=== PATIENT | male | born 1950 | race Caucasian/White ===

== ENCOUNTER 2017-03-17 11:06 | Emergency (ER) | payer MEDICARE ==
[~2017-03-17] VITALS: Ht 172.7 cm; Wt 47.4 kg
[2017-03-17] MEDS ORDERED: SODIUM CHLOR 0.9% 1000 ML INJ 1,000 ML IV SCH (11:13)
[2017-03-17] MEDS ORDERED: SODIUM CHLORIDE 0.9% FLUSH 10 ML FLUSH IV FLUSH PRN (11:15)
[2017-03-17 11:21] VITALS: BP 177/113; PULSE 101; RESP 14; TEMP 98; O2SAT 99
--- NOTE | 2017-03-17 11:23 | PD ---
HPI Chief Complaint: General Weakness Time Seen by Provider: 11:13 Travel History International Travel<30 days: No Contact w/Intl Traveler<30days: No Traveled to known affect area: No History of Present Illness HPI The patient is a 67-year-old male who presents to the emergency department for generalized weakness. Patient has generalized weakness over last several weeks was has been progressing actually of last several months. The patient estimates approximate 20 pound weight loss over the last 6 months. The patient does smoke approximately 12 cigarettes per day and has 2-3 alcoholic drinks per day. The patient does not have a primary physician secondary to insurance issues and has not been followed by primary physician. He denies any known history of chronic medical problems, has never had a colonoscopy. He does note increasing weakness of the last several weeks, occasionally has diarrhea and dark-colored stool. He denies any acute chest pain or shortness of breath, does have a intermittent and chronic cough. The patient denies any known history of colon cancer or lung cancer. He denies any known history of thyroid disorders or anemia. Symptoms are moderate, progressing last several months, and there are no current alleviating factors. The patient states he awakened in bed 4 nights ago and was drenched in sweat, states that he felt like he is unable to move the entire body secondary to generalized weakness, but denied any focal deficits at that time. [facility] Past Medical History Medical History: Denies Significant Hx Past Surgical History Surgical History: No Previous Surgery Social History Alcohol Use: Yes Tobacco Use: Yes Allergies-Medications (Allergen,Severity, Reaction): Coded Allergies: Bee Sting (Verified Allergy, Severe, Anaphylaxis, 03/17/17) Reported Meds & Prescriptions Reported Meds & Active Scripts Active No Active Prescriptions or Reported Medications Review of Systems Except as stated in HPI: all other systems reviewed are Neg General / Constitutional: Positive: Weight Loss, No: Fever HENT: Positive: Lightheadedness Cardiovascular: No: Chest Pain or Discomfort Respiratory: No: Shortness of Breath Gastrointestinal: Positive: Diarrhea, Changes in Bowel Habits, No: Nausea, Vomiting, Abdominal Pain Genitourinary: No: Decreased Urinary Output Musculoskeletal: Positive: Weakness Neurologic: Positive: Weakness Physical Exam Narrative GENERAL: Awake, alert, pleasant 67-year-old male who appears his stated age and is in no acute respiratory distress. The patient is somewhat cachectic. SKIN: Focused skin assessment warm/dry. HEAD: Atraumatic. Normocephalic. EYES: Pupils equal and round. Pallor noted to the lower conjunctiva bilaterally. ENT: No nasal bleeding or discharge. Dry mucous membranes. Poor dentition. NECK: Trachea midline. No JVD. CARDIOVASCULAR: Regular rate and rhythm. No murmur appreciated. Heart rate in the 80s. RESPIRATORY: No accessory muscle use. Clear to auscultation. Breath sounds equal bilaterally. GASTROINTESTINAL: Abdomen soft, non-tender, nondistended. No rebound tenderness. Rectal: No gross blood. Guaiac positive. MUSCULOSKELETAL: No obvious deformities. No clubbing. No cyanosis. No edema. NEUROLOGICAL: Awake and alert. No obvious cranial nerve deficits. Motor grossly within normal limits. Normal speech. PSYCHIATRIC: Appropriate mood and affect; insight and judgment normal. Data Data Last Documented VS Vital Signs Date Time Temp Pulse Resp B/P Pulse Ox O2 Delivery O2 Flow Rate FiO2 03/17/17 12:23 87 14 196/115 100 Room Air 03/17/17 11:24 98.0 Orders Complete Blood Count With Diff (03/17/17 11:13) Comprehensive Metabolic Panel (03/17/17 11:13) Lipase (03/17/17 11:13) Prothrombin Time / Inr (Pt) (03/17/17 11:13) Act Partial Throm Time (Ptt) (03/17/17 11:13) Urinalysis - C+S If Indicated (03/17/17 11:13) Ct Abd/Pel W Iv Contrast(Rout) (03/17/17 11:13) Iv Access Insert/Monitor (03/17/17 11:13) Ecg Monitoring (03/17/17 11:13) Oximetry (03/17/17 11:13) Sodium Chlor 0.9% 1000 Ml Inj (Ns 1000 M (03/17/17 11:13) Sodium Chloride 0.9% Flush (Ns Flush) (03/17/17 11:15) Electrocardiogram (03/17/17 11:13) Chest, Single Ap (03/17/17 11:13) Thyroid Stimulating Hormone (03/17/17 11:13) Free Thyroxine (T4) (03/17/17 11:13) Oral Contrast - Adult (03/17/17 11:17) Influenzae A/B Antigen (03/17/17 11:25) Diatrizoate Susie (Md Chayito Richards) (03/17/17 11:29) Iohexol 350 Inj (Omnipaque 350 Inj) (03/17/17 12:54) Labs Laboratory Tests Test 03/17/17 11:15 White Blood Count 7.6 TH/MM3 Red Blood Count 4.24 MIL/MM3 Hemoglobin 14.3 GM/DL Hematocrit 42.3 % Mean Corpuscular Volume 99.8 FL Mean Corpuscular Hemoglobin 33.7 PG Mean Corpuscular Hemoglobin 33.7 % Concent Red Cell Distribution Width 14.0 % Platelet Count 165 TH/MM3 Mean Platelet Volume 8.7 FL Neutrophils (%) (Auto) 81.5 % Lymphocytes (%) (Auto) 10.3 % Monocytes (%) (Auto) 6.9 % Eosinophils (%) (Auto) 0.7 % Basophils (%) (Auto) 0.6 % Neutrophils # (Auto) 6.2 TH/MM3 Lymphocytes # (Auto) 0.8 TH/MM3 Monocytes # (Auto) 0.5 TH/MM3 Eosinophils # (Auto) 0.1 TH/MM3 Basophils # (Auto) 0.0 TH/MM3 CBC Comment DIFF FINAL Differential Comment Prothrombin Time 10.1 SEC Prothromb Time International 0.9 RATIO Ratio Activated Partial 25.2 SEC Thromboplast Time Sodium Level 134 MEQ/L Potassium Level 3.7 MEQ/L Chloride Level 92 MEQ/L Carbon Dioxide Level 25.7 MEQ/L Anion Gap 16 MEQ/L Blood Urea Nitrogen 15 MG/DL Creatinine 0.91 MG/DL Estimat Glomerular Filtration 83 ML/MIN Rate Random Glucose 104 MG/DL Calcium Level 9.1 MG/DL Total Bilirubin 0.9 MG/DL Aspartate Amino Transf 92 U/L (AST/SGOT) Alanine Aminotransferase 79 U/L (ALT/SGPT) Alkaline Phosphatase 68 U/L Total Protein 6.1 GM/DL Albumin 3.2 GM/DL Lipase 234 U/L Free Thyroxine 1.13 NG/DL Thyroid Stimulating Hormone 2.680 uIU/ML 3rd Gen [facility] Medical Decision Making Medical Screen Exam Complete: Yes Emergency Medical Condition: Yes Medical Record Reviewed: Yes Interpretation(s) EKG reveals normal sinus rhythm with a rate 86. Nonspecific inferior lateral T- wave changes. Laboratory Tests Test 03/17/17 11:15 White Blood Count 7.6 TH/MM3 Red Blood Count 4.24 MIL/MM3 Hemoglobin 14.3 GM/DL Hematocrit 42.3 % Mean Corpuscular Volume 99.8 FL Mean Corpuscular Hemoglobin 33.7 PG Mean Corpuscular Hemoglobin 33.7 % Concent Red Cell Distribution Width 14.0 % Platelet Count 165 TH/MM3 Mean Platelet Volume 8.7 FL Neutrophils (%) (Auto) 81.5 % Lymphocytes (%) (Auto) 10.3 % Monocytes (%) (Auto) 6.9 % Eosinophils (%) (Auto) 0.7 % Basophils (%) (Auto) 0.6 % Neutrophils # (Auto) 6.2 TH/MM3 Lymphocytes # (Auto) 0.8 TH/MM3 Monocytes # (Auto) 0.5 TH/MM3 Eosinophils # (Auto) 0.1 TH/MM3 Basophils # (Auto) 0.0 TH/MM3 CBC Comment DIFF FINAL Differential Comment Prothrombin Time 10.1 SEC Prothromb Time International 0.9 RATIO Ratio Activated Partial 25.2 SEC Thromboplast Time Sodium Level 134 MEQ/L Potassium Level 3.7 MEQ/L Chloride Level 92 MEQ/L Carbon Dioxide Level 25.7 MEQ/L Anion Gap 16 MEQ/L Blood Urea Nitrogen 15 MG/DL Creatinine 0.91 MG/DL Estimat Glomerular Filtration 83 ML/MIN Rate Random Glucose 104 MG/DL Calcium Level 9.1 MG/DL Total Bilirubin 0.9 MG/DL Aspartate Amino Transf 92 U/L (AST/SGOT) Alanine Aminotransferase 79 U/L (ALT/SGPT) Alkaline Phosphatase 68 U/L Total Protein 6.1 GM/DL Albumin 3.2 GM/DL Lipase 234 U/L Free Thyroxine 1.13 NG/DL Thyroid Stimulating Hormone 2.680 uIU/ML 3rd Gen Last Impressions Chest X-Ray 03/17/17 1113 Signed Impressions: Service Date/Time: Friday, March 17, 2017 11:56 - CONCLUSION: No acute cardiopulmonary disease. Leslee Minor MD CT of the abdomen and pelvis reveals fatty liver with multiple low attenuating lesions indeterminate, not particularly simple cyst by CT criteria and metastatic disease should be excluded. There is some degree of spasm involving the sigmoid colon with thickening of the wall. Differential Diagnosis Differential diagnosis includes symptomatic anemia, hypothyroidism, hyperthyroidism, hyponatremia, lung cancer, pancreatic cancer, colon cancer, GI bleed. Narrative Course IV was established, labs are drawn and sent, and the patient was placed on cardiac telemetry monitoring and continuous pulse oximetry monitoring. EKG was ordered and interpreted. Chest x-rays obtained. CT of the abdomen and pelvis with IV and oral contrast was ordered to evaluate for pancreatic/colon mass. The patient was administered 1 L of IV fluids. The patient's laboratory evaluation is unremarkable, there is no significant anemia. There is no significant underlying renal disease. AST nail tear mildly elevated. Chest x- ray is unremarkable. CT the abdomen and pelvis reveals fatty liver with multiple low attenuating lesions indeterminate, not particularly simple cyst by CT criteria and metastatic disease should be excluded. The patient also had some degree of spasm involving the sigmoid colon with thickening of the wall. The patient will need follow-up with gastroenterology for outpatient follow-up and colonoscopy. The patient will be provided a mandatory referral to be evaluated by gastroenterology for colonoscopy. I discussed the patient's CT findings with him regarding the possible metastatic lesions versus simple cyst in the liver and the need to have a colonoscopy. I discussed these findings with the patient's daughter who is in the room as well. The patient does have Medicare 8, therefore, cannot have a mandatory referral. 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 He is advised to stop smoking and decrease his alcohol intake, eat 3 regular meals per day, and use ensure shakes in between as needed. [facility] Point of Care Internal Pos. & Neg. Controls: Passed Fecal Specimen Occult Blood: Positive Diagnosis Primary Impression: Generalized weakness Referrals: Christina Hamlin MD call for appointment Patient Instructions: General Instructions Additional Instructions: Stop smoking. Decrease alcohol intake. Please provide a patient a copy of his CT results and lab results at discharge. Follow-up with gastroenterology, you need an outpatient colonoscopy. Scripts No Active Prescriptions or Reported Meds Disposition: DISCHARGE HOME Condition: Stable Bertin Patiño MD Mar 17, 2017 11:22
[2017-03-17 11:24] VITALS: BP 177/113; PULSE 101; RESP 14; TEMP 98; O2SAT 99
[2017-03-17] MEDS ORDERED: DIATRIZOATE MEGLUM/DIATRIZOATE SOD 9 ML CUP ONE (11:29)
[2017-03-17 11:31] LABS: AUTOMATED NEUTROPHIL # 6.2 TH/MM3 (1.8-7.7); BASOPHIL % 0.6 % (0.0-2.0); EOSINOPHIL # 0.1 TH/MM3 (0-0.4); EOSINOPHIL % 0.7 % (0.0-4.0); HEMATOCRIT 42.3 % (39.0-51.0); LYMPH % 10.3 % (9.0-44.0); LYMPHOCYTE # 0.8 TH/MM3 (1.0-4.8); MEAN CELL VOLUME 99.8 FL (80.0-100.0); MEAN CORPUSCULAR HEMOGLOBIN 33.7 PG (27.0-34.0); MEAN CORPUSCULAR HGB CONC 33.7 % (32.0-36.0); MONO % 6.9 % (0.0-8.0); NEUT % 81.5 % (16.0-70.0); PLATELET COUNT 165 TH/MM3 (150-450); RED BLOOD COUNT 4.24 MIL/MM3 (4.50-5.90); WHITE BLOOD COUNT 7.6 TH/MM3 (4.0-11.0)
[2017-03-17 11:40] LABS: CHLORIDE 92 MEQ/L (98-107); HEMO FLAGS DIFF FINAL; POTASSIUM 3.7 MEQ/L (3.5-5.1); SODIUM (NA) 134 MEQ/L (136-145)
[2017-03-17 11:43] LABS: ANION GAP 16 MEQ/L (5-15); BICARBONATE 25.7 MEQ/L (21.0-32.0)
[2017-03-17 11:44] LABS: BLOOD UREA NITROGEN 15 MG/DL (7-18)
[2017-03-17 11:46] LABS: ALT (GPT) 79 U/L (12-78); AST (GOT) 92 U/L (15-37); GLOMERULAR FILTRATION RATE 83 ML/MIN (>89)
[2017-03-17 11:47] LABS: APTT (PATIENT) 25.2 SEC (24.3-30.1); INTERNATIONAL NORMALIZED RATIO 0.9 RATIO; PROTHROMBIN TIME - PATIENT 10.1 SEC (9.8-11.6); TOTAL BILIRUBIN ADULT 0.9 MG/DL (0.2-1.0)
[2017-03-17 11:49] LABS: ALKALINE PHOSPHATASE 68 U/L (45-117)
--- NOTE | 2017-03-17 12:13 | RADHPO ---
EXAM DATE/TIME: 03/17/2017 11:56 [facility] COMPARISON: No previous studies available for comparison. INDICATIONS : Short of breath. MEDICAL HISTORY : None. SURGICAL HISTORY : None. ENCOUNTER: Initial ACUITY: 1 day PAIN SCORE: 7/10 LOCATION: Bilateral chest FINDINGS: The lungs are clear without infiltrate, nodule, or mass. There is no appreciable pleural effusion fo r technique. Heart and mediastinum are unremarkable. CONCLUSION: No acute cardiopulmonary disease. Leslee Minor MD on March 17, 2017 at 12:11 Board Certified Radiologist. This report was verified electronically.
[2017-03-17 12:23] VITALS: BP 196/115; PULSE 87; RESP 14; O2SAT 100
[2017-03-17 12:38] LABS: FREE T4 1.13 NG/DL (0.76-1.46)
[2017-03-17] MEDS ORDERED: IOHEXOL 350 MG/ML 10 ML VIAL (for RAD DIAG) IV ONE (12:54)
--- NOTE | 2017-03-17 13:19 | RADHPO ---
EXAM DATE/TIME: 03/17/2017 12:44 [facility] COMPARISON: No previous studies available for comparison. INDICATIONS : Weight loss. Evaluate for cancer. IV CONTRAST: 85 cc Omnipaque 350 (iohexol) IV ORAL CONTRAST: Partial prescribed oral contrast ingested. RADIATION DOSE: 4.83 CTDIvol (mGy) MEDICAL HISTORY : None SURGICAL HISTORY : None. ENCOUNTER: Initial ACUITY: 4 - 6 months PAIN SCALE: 0/10 LOCATION: abdomen/pelvis TECHNIQUE: Volumetric scanning of the abdomen and pelvis was performed. Using automated exposure control and adjustment of the mA and/or kV according to patient size, radiation dose was kept as low as reasonably achievable to obtain optimal diagnostic quality images. FINDINGS: CT Abdomen: The liver is fatty with 4 separate subcentimeter low attenuating lesions may represent me tastatic disease. The spleen, pancreas, kidneys, adrenals are unremarkable. There is no evidence for any appreciable pathological adenopathy, free fluid, or bowel obstruction. Chronic vascular calcific ations are present involving the aorta, iliac arteries without any significant stenosis or aneurysmal dilatations for technique. There are old healed rib fractures bilaterally. Slight degree of somewhat linear irregular opacity is seen in the left lung base mostly consistent with scarring. CT pelvis: There is no evidence for mass, abscess formation, or any significant adenopathy within the pelvis. The prostate gland is inhomogeneous and measures 2.9 x 4.3 cm in AP and transverse diameters and nonspecific. There are scattered diverticuli mainly in the sigmoid colon without definite signs of diverticulitis. There is some degree of spasm involving the sigmoid colon with thickening of the w all. CONCLUSION: Fatty liver with multiple low attenuating lesions indeterminant not particularly simp le cysts by CT criteria and metastatic disease should be excluded. Leslee Minor MD on March 17, 2017 at 13:13 Board Certified Radiologist. This report was verified electronically.
[2017-03-17 13:35] VITALS: BP 168/98; PULSE 94; RESP 14; O2SAT 100
[2017-03-17 13:42] LABS: BLOOD, URINE NEG (NEG); GLUCOSE,URINE NEG (NEG); KETONE, URINE 15 mg/dL (NEG); NITRITE,URINE NEG (NEG); PH, URINE 5.5 (5.0-8.5)
[2017-03-17 13:46] LABS: METHOD OF COLLECTION CLEAN CATCH; URINE COLOR STRAW (YELLW/STRAW)
[2017-03-17 13:47] LABS: COMMENT (UR) CULT NOT INDICATED; CULTURE IF INDICATED CULT NOT INDICATED; RBC, URINE 0-3 /hpf (0-3); SQUAMOUS EPITHELIAL CELL URINE 0-5 /hpf (0-5)
--- NOTE | 2017-03-18 11:53 | EKG ---
Date Performed: 03/17/2017 Time Performed: 11:09:10 PTAGE: 67 years EKG: Sinus rhythm Inferior/lateral ST-T changes are nonspecific Borderline ECG NO PREVIOUS TRACING DOCTOR: Benny Stroud Interpretating Date/Time 03/18/2017 11:52:20
== END 2017-03-17 13:48 | disposition home or self-care (01) ==
LOC: PHED 11:06
DX: R53.1 Weakness (principal); R94.31 Abnormal electrocardiogram [ECG] [EKG]; F17.210 Nicotine dependence, cigarettes, uncomplicated; R63.4 Abnormal weight loss; R19.7 Diarrhea, unspecified
CPT/HCPCS: 71010; 74177; 80053; 81001; 83690; 84439; 84443; 85025; 85610; 85730; 87804; 93005; 96360; 99285; J7030; Q9963; Q9967

== ENCOUNTER 2018-03-24 16:49 | Observation (INO) | payer SELFPAY ==
[~2018-03-24] VITALS: Ht 172.7 cm; Wt 46.0 kg
[~2018-03-24 16:49] MED LIST: IODIXANOL 320 MG/ML 10 ML VIAL (for Rad CT) IVCONTRAST ONE
[2018-03-24 17:10] VITALS: BP 96/57; PULSE 109; RESP 16; TEMP 97.4; O2SAT 99
[2018-03-24] MEDS ORDERED: SODIUM CHLOR 0.9% 1000 ML INJ 1,000 ML IV ONE (19:45)
[2018-03-24 20:09] LABS: AUTOMATED NEUTROPHIL # 4.9 TH/MM3 (1.8-7.7); BASOPHIL % 0.3 % (0.0-2.0); HEMATOCRIT 38.1 % (39.0-51.0); HEMOGLOBIN 12.7 GM/DL (13.0-17.0); LYMPH % 8.3 % (9.0-44.0); LYMPHOCYTE # 0.5 TH/MM3 (1.0-4.8); MEAN CELL VOLUME 100.8 FL (80.0-100.0); MEAN CORPUSCULAR HEMOGLOBIN 33.6 PG (27.0-34.0); MEAN CORPUSCULAR HGB CONC 33.4 % (32.0-36.0); MEAN PLATELET VOLUME 9.2 FL (7.0-11.0); MONO % 7.2 % (0.0-8.0); MONOCYTE # 0.4 TH/MM3 (0-0.9); NEUT % 84.2 % (16.0-70.0); PLATELET COUNT 208 TH/MM3 (150-450); RED BLOOD COUNT 3.78 MIL/MM3 (4.50-5.90); RED CELL DISTRIBUTION WIDTH 14.7 % (11.6-17.2); WHITE BLOOD COUNT 5.8 TH/MM3 (4.0-11.0)
[2018-03-24 20:16] LABS: CHLORIDE 100 MEQ/L (98-107); SODIUM (NA) 134 MEQ/L (136-145)
[2018-03-24 20:19] LABS: CALCIUM 8.1 MG/DL (8.5-10.1)
[2018-03-24 20:20] LABS: ALBUMIN 2.5 GM/DL (3.4-5.0); BICARBONATE 21.2 MEQ/L (21.0-32.0)
--- NOTE | 2018-03-24 20:52 | RADRPT ---
EXAM DATE/TIME: 03/24/2018 20:17 [facility] COMPARISON: CHEST SINGLE AP, March 17, 2017, 11:56. INDICATIONS : Cough. MEDICAL HISTORY : None. SURGICAL HISTORY : None. ENCOUNTER: Initial ACUITY: 3 days PAIN SCORE: 0/10 LOCATION: Bilateral chest FINDINGS: Lungs are hyperexpanded. Ill-defined/mild infiltrate in the right middle lobe. Lungs otherwise appear clear. No pleural effusion. No pneumothorax. Heart size stable, within normal limits. CONCLUSION: Early or mild pneumonia of the right middle lobe possible in the proper clinical setting. Lungs other andrews clear. Emphysema. Ben Goldsmith MD on March 24, 2018 at 20:48 Board Certified Radiologist. This report was verified electronically.
[2018-03-24 21:01] VITALS: BP 158/62; PULSE 84; RESP 18
[2018-03-24 21:14] LABS: ALKALINE PHOSPHATASE 86 U/L (45-117); ALT (GPT) 24 U/L (12-78); AST (GOT) 44 U/L (15-37); BLOOD UREA NITROGEN 12 MG/DL (7-18); GLOMERULAR FILTRATION RATE 60 ML/MIN (>89); GLUCOSE,RANDOM 431 MG/DL (74-106); TOTAL BILIRUBIN ADULT 0.3 MG/DL (0.2-1.0); TOTAL PROTEIN 6.1 GM/DL (6.4-8.2); TROPONIN I 0.02 NG/ML (0.02-0.05)
--- NOTE | 2018-03-24 21:44 | RADRPT ---
EXAM DATE/TIME: 03/24/2018 21:22 [facility] COMPARISON: No previous studies available for comparison. INDICATIONS : Altered mental status. RADIATION DOSE: 53.37 CTDIvol (mGy) MEDICAL HISTORY : None SURGICAL HISTORY : None. ENCOUNTER: Initial ACUITY: 1 day PAIN SCALE: 0/10 LOCATION: cranial TECHNIQUE: Multiple contiguous axial images were obtained of the head. Using automated exposure control and adj ustment of the mA and/or kV according to patient size, radiation dose was kept as low as reasonably a chievable to obtain optimal diagnostic quality images. DICOM format image data is available electro nically for review and comparison. FINDINGS: CEREBRUM: The ventricles are normal for age. No evidence of midline shift, mass lesion, hemorrhage or acute in farction. No extra-axial fluid collections are seen. Atrophy noted. POSTERIOR FOSSA: The cerebellum and brainstem are intact. The 4th ventricle is midline. The cerebellopontine angle i s unremarkable. EXTRACRANIAL: There is mucoperiosteal thickening artly seen of the left maxillary air cell. SKULL: The calvaria is intact. No evidence of skull fracture. CONCLUSION: 1. No acute intracranial abnormality demonstrated. 2. Atrophy. 3. Left maxillary sinusitis. Ben Goldsmith MD on March 24, 2018 at 21:40 Board Certified Radiologist. This report was verified electronically.
--- NOTE | 2018-03-24 21:51 | EKG ---
Date Performed: 03/24/2018 Time Performed: 20:43:30 PTAGE: 68 years EKG: Sinus rhythm WITH OCCASIONAL SUPRAVENTRICULAR PREMATURE COMPLEXES MARKED T WAVE INVERSION CONSIDER ANTEROLATERAL AND INFERIOR ISCHEMIA, ACUTE ABDOMEN, OR ACUTE CVA ABNORMAL ECG PREVIOUS TRACING : 03/17/2017 11.09 Compared to previous tracing, T wave changes are now presen t. DOCTOR: Roel Oswald Interpretating Date/Time 03/24/2018 21:51:06
[2018-03-24] MEDS ORDERED: AZITHROMYCIN INJ 500 MG in SODIUM CHLOR 0.9% 250 ML INJ 250 ML IV ONE (22:15)
[2018-03-24] MEDS ORDERED: cefTRIAXone INJ 1,000 MG in SODIUM CHLORIDE 0.9% INJ 100 ML IV ONE (22:15)
--- NOTE | 2018-03-24 22:18 | PD ---
HPI Chief Complaint: Abnormal Results Time Seen by Provider: 19:38 Travel History International Travel<30 days: No Contact w/Intl Traveler<30days: No Traveled to known affect area: No History of Present Illness HPI Patient is a 68-year-old male who comes in with complaints of generalized weakness and shortness of breath. He says that he experienced sleep paralysis this morning and his son called EMS. When EMS arrived his glucose was 24. He was given D10 and his sugar improved to the 130s. He says he has been eating all day, including multiple fruit juices. He has no history of diabetes and he does not know why his sugar is going from low to high. He says he did not eat dinner last night. He says he often only eats once a day. He says this is just because he is not hungry. He was here a year ago for similar symptoms and was told to follow-up with gastroenterology regarding abnormal findings on CT of his abdomen. He says he is followed up, but has not had a colonoscopy yet. He denies any abdominal pain. Denies nausea or vomiting. He denies any chest pain. He has had worsening dyspnea on exertion. Severity is mild to moderate. PFSH Past Medical History Diminished Hearing: No Pneumonia: Yes Tetanus Vaccination: Unknown Influenza Vaccination: No ?: Not Social History Alcohol Use: Yes (~4 DRINKS DAILY) Tobacco Use: Yes (~3/4 PPD) Substance Use: No Allergies-Medications (Allergen,Severity, Reaction): Coded Allergies: bee venom protein (honey bee) (Verified Allergy, Severe, Anaphylaxis, 03/24) Reported Meds & Prescriptions Reported Meds & Active Scripts Active No Active Prescriptions or Reported Medications Review of Systems Except as stated in HPI: all other systems reviewed are Neg General / Constitutional: No: Fever, Chills HENT: No: Headaches, Lightheadedness Cardiovascular: No: Chest Pain or Discomfort Respiratory: Positive: Cough, Shortness of Breath Gastrointestinal: No: Nausea, Vomiting, Abdominal Pain Musculoskeletal: No: Myalgias, Edema Skin: No Rash, No Change in Pigmentation Neurologic: Positive: Weakness Physical Exam Narrative GENERAL: Awake and alert, in no acute distress. SKIN: Focused skin assessment warm/dry. No wounds or signs of infection. HEAD: Atraumatic. Normocephalic. EYES: Pupils equal and round. No scleral icterus. ENT: Mucous membranes pink and moist. NECK: Trachea midline. No JVD. CARDIOVASCULAR: Regular rate and rhythm. No murmur appreciated. RESPIRATORY: No accessory muscle use. Clear to auscultation. Breath sounds equal bilaterally. GASTROINTESTINAL: Abdomen soft, non-tender, nondistended. MUSCULOSKELETAL: No obvious deformities. No clubbing. No cyanosis. No edema. NEUROLOGICAL: Awake and alert. No obvious cranial nerve deficits. Motor grossly within normal limits. Normal speech. PSYCHIATRIC: Appropriate mood and affect; insight and judgment normal. Data Data Last Documented VS Vital Signs Date Time Temp Pulse Resp B/P (MAP) Pulse Ox O2 Delivery O2 Flow Rate FiO2 03/24/18 21:01 84 18 158/62 (94) 03/24/18 17:10 97.4 99 Orders Orders Iv Access Insert/Monitor (03/24/18 19:45) Complete Blood Count With Diff (03/24/18 19:45) Comprehensive Metabolic Panel (03/24/18 19:45) Chest, Pa & Lat (03/24/18 ) Ct Brain W/O Iv Contrast(Rout) (03/24/18 ) Electrocardiogram (03/24/18 ) Troponin I (03/24/18 19:45) Sodium Chlor 0.9% 1000 Ml Inj (Ns 1000 M (03/24/18 19:45) Ceftriaxone Inj (Rocephin Inj) (03/24/18 22:15) Azithromycin Inj (Zithromax Inj) (03/24/18 22:15) Labs Laboratory Tests Test 03/24/18 19:57 White Blood Count 5.8 TH/MM3 Red Blood Count 3.78 MIL/MM3 Hemoglobin 12.7 GM/DL Hematocrit 38.1 % Mean Corpuscular Volume 100.8 FL Mean Corpuscular Hemoglobin 33.6 PG Mean Corpuscular Hemoglobin Concent 33.4 % Red Cell Distribution Width 14.7 % Platelet Count 208 TH/MM3 Mean Platelet Volume 9.2 FL Neutrophils (%) (Auto) 84.2 % Lymphocytes (%) (Auto) 8.3 % Monocytes (%) (Auto) 7.2 % Eosinophils (%) (Auto) 0.0 % Basophils (%) (Auto) 0.3 % Neutrophils # (Auto) 4.9 TH/MM3 Lymphocytes # (Auto) 0.5 TH/MM3 Monocytes # (Auto) 0.4 TH/MM3 Eosinophils # (Auto) 0.0 TH/MM3 Basophils # (Auto) 0.0 TH/MM3 CBC Comment DIFF FINAL Differential Comment Blood Urea Nitrogen 12 MG/DL Creatinine 1.20 MG/DL Random Glucose 431 MG/DL Total Protein 6.1 GM/DL Albumin 2.5 GM/DL Calcium Level 8.1 MG/DL Alkaline Phosphatase 86 U/L Aspartate Amino Transf (AST/SGOT) 44 U/L Alanine Aminotransferase (ALT/SGPT) 24 U/L Total Bilirubin 0.3 MG/DL Sodium Level 134 MEQ/L Potassium Level 3.7 MEQ/L Chloride Level 100 MEQ/L Carbon Dioxide Level 21.2 MEQ/L Anion Gap 13 MEQ/L Estimat Glomerular Filtration Rate 60 ML/MIN Troponin I 0.02 NG/ML MDM Medical Decision Making Medical Screen Exam Complete: Yes Emergency Medical Condition: Yes Medical Record Reviewed: Yes Interpretation(s) ECG shows deep T-wave inversions in leads V3 through V6, those are new since his previous EKG in July 2017. Differential Diagnosis ACS versus pneumonia versus electrolyte abnormality versus dehydration versus sepsis Narrative Course Patient is a 68-year-old male who comes in complaining of generalized weakness as well as shortness of breath. IV established, labs sent. Labs show normal white blood cell count however, there is a left shift. His glucose is elevated to 431. Chest x-ray is concerning for pneumonia. Last [address] 03/24/18 0000 Signed Impressions: Service Date/Time: Saturday, March 24, 2018 21:22 - CONCLUSION: 1. No acute intracranial abnormality demonstrated. 2. Atrophy. 3. Left maxillary sinusitis. Ben Goldsmith MD Chest X-Ray 03/24/18 0000 Signed Impressions: Service Date/Time: Saturday, March 24, 2018 20:17 - CONCLUSION: Early or mild pneumonia of the right middle lobe possible in the proper clinical setting. Lungs otherwise clear. Emphysema. Ben Goldsmith MD Patient is given Rocephin and azithromycin. Based on new EKG findings as well as his history of dyspnea on exertion and the findings of pneumonia, believe patient would benefit from a hospital stay and continued workup for possible cardiac ischemia. He is admitted for further management. Diagnosis Primary Impression: Pneumonia Qualified Codes: J18.1 - Lobar pneumonia, unspecified organism Additional Impressions: Generalized weakness ECG abnormality Admitting Information Admitting Physician Requests: Admit Scripts No Active Prescriptions or Reported Meds Larissa Block MD Mar 24, 2018 22:18
[2018-03-24] MEDS ORDERED: SODIUM CHLOR 0.9% 1000 ML INJ 1,000 ML IV SCH (22:36)
[2018-03-24] MEDS ORDERED: IOHEXOL 350 MG/ML 50 ML BTL (for Cath Lab) OTHER ONE (22:39)
[2018-03-24] MEDS ORDERED: IOHEXOL 350 MG/ML 100 ML BTL (for Cath Lab) OTHER ONE (22:39)
[2018-03-24] MEDS ORDERED: NALOXONE HCL 0.4 MG/ML AMP IV PUSH PRN (22:45)
[2018-03-24] MEDS ORDERED: LACTULOSE SYRUP 20 GM/30 ML CUP PO PRN (22:45)
[2018-03-24] MEDS ORDERED: ONDANSETRON HCL 4 MG/2 ML VIAL IVP PRN (22:45)
[2018-03-24] MEDS ORDERED: DEXTROSE 50% IN WATER 50 ML VIAL(D50) IV PUSH PRN (22:45)
[2018-03-24] MEDS ORDERED: SENNOSIDES 8.6 MG TAB PO PRN (22:45)
[2018-03-24] MEDS ORDERED: RESP: ALBUTEROL 2.5 MG/IPRATROPIUM 0.5 MG NEB (PRN) NEB (22:45)
[2018-03-24] MEDS ORDERED: GLUCAGON 1 MG/ML VIAL OTHER PRN (22:45)
[2018-03-24] MEDS ORDERED: BISACODYL 10 MG SUPP RECTAL PRN (22:45)
[2018-03-24] MEDS ORDERED: MAGNESIUM HYDROXIDE SUSP 30 ML CUP PO PRN (22:45)
[2018-03-24] MEDS ORDERED: SODIUM CHLORIDE 0.9% FLUSH 10 ML FLUSH IV FLUSH PRN (22:45)
[2018-03-24] MEDS ORDERED: ACETAMINOPHEN 325 MG TAB PO PRN (22:45)
[2018-03-24] MEDS: guaiFENesin E.R. 600 MG TAB PO SCH (22:58)
[2018-03-24 23:15] VITALS: O2SAT 99
[2018-03-24] MEDS: RESP: ALBUTEROL 2.5 MG/IPRATROPIUM 0.5 MG NEB (SCH) NEB (23:16)
[2018-03-24 23:30] VITALS: PULSE 105
[2018-03-24 23:45] VITALS: BP 145/70; PULSE 99; RESP 18; TEMP 97.9; O2SAT 98
[2018-03-25] VITALS (7 sets, daily range): BP systolic 135–172; BP diastolic 64–118; PULSE 62–106; RESP 18–20; TEMP 97.4–98.9; O2SAT 96–100
[2018-03-25 02:20] LABS: TROPONIN I 0.02 NG/ML (0.02-0.05)
[2018-03-25] MEDS: RESP: ALBUTEROL 2.5 MG/IPRATROPIUM 0.5 MG NEB (SCH) NEB (03:21)
--- NOTE | 2018-03-25 05:22 | EKG ---
Date Performed: 03/25/2018 Time Performed: 01:45:11 PTAGE: 68 years EKG: Sinus rhythm MARKED T-WAVE ABNORMALITY, CONSIDER ANTEROLATERAL AND INFERIOR ISCHEMIA ABNORMAL ECG PREVIOUS TRACING : 03/24/2018 20.43 No significant change from previous tracing noted. DOCTOR: Roel Oswald Interpretating Date/Time 03/25/2018 05:21:08
[2018-03-25 06:52] LABS: BASOPHIL % 0.1 % (0.0-2.0); EOSINOPHIL % 0.1 % (0.0-4.0); HEMATOCRIT 33.1 % (39.0-51.0); HEMOGLOBIN 11.3 GM/DL (13.0-17.0); LYMPH % 11.9 % (9.0-44.0); LYMPHOCYTE # 0.7 TH/MM3 (1.0-4.8); MEAN CELL VOLUME 100.4 FL (80.0-100.0); MEAN CORPUSCULAR HEMOGLOBIN 34.5 PG (27.0-34.0); MEAN CORPUSCULAR HGB CONC 34.3 % (32.0-36.0); MEAN PLATELET VOLUME 9.3 FL (7.0-11.0); MONO % 8.7 % (0.0-8.0); MONOCYTE # 0.5 TH/MM3 (0-0.9); NEUT % 79.2 % (16.0-70.0); PLATELET COUNT 186 TH/MM3 (150-450); RED BLOOD COUNT 3.29 MIL/MM3 (4.50-5.90); WHITE BLOOD COUNT 6.2 TH/MM3 (4.0-11.0)
[2018-03-25 07:04] LABS: BICARBONATE 21.8 MEQ/L (21.0-32.0); CALCIUM 7.8 MG/DL (8.5-10.1); CREATININE 0.84 MG/DL (0.60-1.30)
[2018-03-25] MEDS: INSULIN ASPART SUPPLEMENTAL SCALE SQ SCH ×4 (07:44→20:37)
[2018-03-25] MEDS: SODIUM CHLORIDE 0.9% FLUSH 10 ML FLUSH IV FLUSH SCH ×2 (09:03→20:38)
[2018-03-25] MEDS: guaiFENesin E.R. 600 MG TAB PO SCH ×2 (09:06→20:37)
[2018-03-25] MEDS ORDERED: POTASSIUM CHLORIDE 10 MEQ CONTROLLED RELEASE TAB PO ONE (09:15)
--- NOTE | 2018-03-25 09:35 | HHI.HP ---
[facility] Primary [facility]ician No Primary Care Physician Admission Diagnosis pneumonia, acs Diagnoses: (1) ECG abnormality Diagnosis: Principal (2) Pneumonia Diagnosis: Principal (3) Hyperglycemia Diagnosis: Principal Chief Complaint: "Sleep paralysis" Travel History International Travel<30 Days: No Contact w/Intl Traveler <30 Da: No Traveled to Known Affected Are: No History of Present Illness This is a 68-year-old male who indicates that he has not had any chronic medical illnesses, he does not go to a primary medical doctor for evaluation who presented the hospital via ambulance because of hypoglycemia. Patient indicates that his normal state of health until yesterday morning when he woke up and he explained that he was in "sleep paralysis". He was awake but he could not move. His son did call [facility] who came in and evaluated him. It was indicated that his blood sugar was 24 and they gave him D10 with significant improvement. After the administration of D10 the patient states that all the symptoms resolved and he felt much better. Patient had workup done in the emergency department and found to have significant hyperglycemia, chest x-ray showing possible mild right middle lobe consolidation, and abnormal EKG with T-wave inversions noted in all leads. When compared to previous EKG this appears to be a change. Because of the abnormal EKG findings is recommended by the ER physician that the patient be observed in the hospital for further evaluation and management. Patient denies any chest pain, nausea, vomiting, diaphoresis, shortness of breath, dyspnea. Patient denies any weight gain, weight loss, polydipsia, polyphagia. Review of Systems Neurologic: COMPLAINS OF: Speech Problems Except as stated in HPI: all other systems reviewed are Neg Past Family Social History Past Medical History No chronic medical illnesses Past Surgical History Left groin cyst removal Reported Medications Reported Meds & Active Scripts Active No Active Prescriptions or Reported Medications Allergies: Coded Allergies: bee venom protein (honey bee) (Verified Allergy, Severe, Anaphylaxis, 03/24) Family History Reviewed and significant for mother living 204 years old and in old age , father in his late 80s from old age. Brother from cancer. Social History Patient does continue to smoke three-quarter pack of cigarettes a day since he was 2 years old. He drinks 4 alcoholic beverages daily. The patient denies any illicit drug use Physical Exam Vital Signs Vital Signs Date Time Temp Pulse Resp B/P (MAP) Pulse Ox O2 Delivery O2 Flow Rate FiO2 03/25/18 08:00 98.4 97 18 141/64 (89) 97 03/25/18 04:00 98.5 102 18 140/65 (90) 96 03/24/18 23:45 03/24/18 23:45 97.9 99 18 145/70 (95) 98 03/24/18 23:30 105 03/24/18 23:15 99 21 03/24/18 21:01 84 18 158/62 (94) 03/24/18 19:47 18 03/24/18 17:10 97.4 109 16 96/57 (70) 99 Physical Exam GENERAL: Well-developed, well-nourished, in no acute distress. alert and orientated HEENT: Head is normocephalic without any lesions or masses noted. Facial features are symmetric. Eyes: Pupils equal round reactive to light. Extraocular muscles are intact. Conjunctivae were clear. Oropharyngeal: Pharynx without any erythema edema. Tongue is midline without deviation. Buccal mucosa is moist without any masses or lesions NECK: Supple without any masses. Trachea midline no deviation. No JVD, no bruits are appreciated CARDIAC: Regular rhythm, regular rate. S1/S2 are heard. No murmurs gallops or rubs. LUNGS: Clear to auscultation bilaterally. No wheeze, rhonchi or rales. No use of accessory muscles on inspiration or expiration. ABDOMEN: Soft, nontender. Nondistended. Bowel sounds heard in all 4 quadrants. No organomegaly or masses. Negative rebound, negative guarding EXTREMITIES: No edema, pulses are equal bilaterally. No cyanosis or clubbing NEUROLOGY: Mood and affect appear appropriate. Cranial nerves II through XII grossly intact. Muscle strength 5/5 in upper and lower extremities bilaterally. Deep tendon reflexes are 2+ in upper and lower extremities bilaterally. Laboratory Laboratory Tests Test 03/24/18 19:57 03/25/18 01:50 03/25/18 05:35 03/25/18 08:38 White Blood Count 5.8 6.2 Red Blood Count 3.78 3.29 Hemoglobin 12.7 11.3 Hematocrit 38.1 33.1 Mean Corpuscular Volume 100.8 100.4 Mean Corpuscular Hemoglobin 33.6 34.5 Mean Corpuscular Hemoglobin Concent 33.4 34.3 Red Cell Distribution Width 14.7 15.0 Platelet Count 208 186 Mean Platelet Volume 9.2 9.3 Neutrophils (%) (Auto) 84.2 79.2 Lymphocytes (%) (Auto) 8.3 11.9 Monocytes (%) (Auto) 7.2 8.7 Eosinophils (%) (Auto) 0.0 0.1 Basophils (%) (Auto) 0.3 0.1 Neutrophils # (Auto) 4.9 5.0 Lymphocytes # (Auto) 0.5 0.7 Monocytes # (Auto) 0.4 0.5 Eosinophils # (Auto) 0.0 0.0 Basophils # (Auto) 0.0 0.0 CBC Comment DIFF FINAL DIFF FINAL Differential Comment Blood Urea Nitrogen 12 12 Creatinine 1.20 0.84 Random Glucose 431 136 Total Protein 6.1 Albumin 2.5 Calcium Level 8.1 7.8 Alkaline Phosphatase 86 Aspartate Amino Transf (AST/SGOT) 44 Alanine Aminotransferase (ALT/SGPT) 24 Total Bilirubin 0.3 Sodium Level 134 142 Potassium Level 3.7 3.1 Chloride Level 100 110 Carbon Dioxide Level 21.2 21.8 Anion Gap 13 10 Estimat Glomerular Filtration Rate 60 90 Troponin I 0.02 0.02 Total Creatine Kinase 51 Result Diagram: 03/25/18 0535 03/25/18 0535 Imaging Last Impressions Head CT 03/24/18 0000 Signed Impressions: Service Date/Time: Saturday, March 24, 2018 21:22 - CONCLUSION: 1. No acute intracranial abnormality demonstrated. 2. Atrophy. 3. Left maxillary sinusitis. Ben Goldsmith MD Chest X-Ray 03/24/18 0000 Signed Impressions: Service Date/Time: Saturday, March 24, 2018 20:17 - CONCLUSION: Early or mild pneumonia of the right middle lobe possible in the proper clinical setting. Lungs otherwise clear. Emphysema. MD Shun Arango VTE Risk Assessment Caprini VTE Risk Assessment: Mod/High Risk (score >= 2) Caprini Risk Assessment Model Point Value = 1 Point Value = 2 Point Value = 3 Point Value = 5 Age 41-60 Minor surgery BMI > 25 kg/m2 Swollen legs Varicose veins or History of unexplained or recurrent spontaneous Oral contraceptives or hormone replacement Sepsis (< 1 month) Serious lung disease, including pneumonia (< 1 month) Abnormal pulmonary function Acute myocardial infarction Congestive heart failure (< 1 month) History of inflammatory bowel disease Medical patient at bed rest Age 61-74 Arthroscopic surgery Major open surgery (> 45 min) Laparoscopic surgery (> 45 min) Malignancy Confined to bed (> 72 hours) Immobilizing plaster cast Central venous access Age >= 75 History of VTE Family history of VTE Factor V Leiden Prothrombin [id number] Lupus anticoagulant Anticardiolipin antibodies Elevated serum homocysteine Heparin-induced thrombocytopenia Other congenital or acquired thrombophilia Stroke (< 1 month) Elective arthroplasty Hip, pelvis, or leg fracture Acute spinal cord injury (< 1 month) Prophylaxis Regimen Total Risk Factor Score Risk Level Prophylaxis Regimen 0-1 Low Early ambulation 2 Moderate Order ONE of the following: *Sequential Compression Device (SCD) *Heparin 5000 units SQ BID 3-4 Higher Order ONE of the following medications: *Heparin 5000 units SQ TID *Enoxaparin/Lovenox 40 mg SQ daily (WT < 150 kg, CrCl > 30 mL/min) *Enoxaparin/Lovenox 30 mg SQ daily (WT < 150 kg, CrCl > 10-29 mL/min) *Enoxaparin/Lovenox 30 mg SQ BID (WT < 150 kg, CrCl > 30 mL/min) AND/OR *Sequential Compression Device (SCD) 5 or more Highest Order ONE of the following medications: *Heparin 5000 units SQ TID (Preferred with Epidurals) *Enoxaparin/Lovenox 40 mg SQ daily (WT < 150 kg, CrCl > 30 mL/min) *Enoxaparin/Lovenox 30 mg SQ daily (WT < 150 kg, CrCl > 10-29 mL/min) *Enoxaparin/Lovenox 30 mg SQ BID (WT < 150 kg, CrCl > 30 mL/min) AND *Sequential Compression Device (SCD) Assessment and Plan Assessment and Plan Hypoglycemia with profound weakness -Possible underlying diabetes, patient presented to the emergency department he had blood sugar of 431 -We will obtain hemoglobin A1c -Accu-Cheks with sliding scale insulin Abnormal EKG -Patient is asymptomatic -EKG showing abnormal T waves in almost every lead showing possible signs of anterior lateral ischemia -Will need to obtain EKG after replacing all electrodes to see if related to placement -Serial cardiac enzymes are unremarkable and do not show any signs of cardiac injury -Consult cardiology for further recommendations -Obtain echocardiogram -Start aspirin Early or mild pneumonia of the right middle lobe possible in the proper clinical setting per chest x-ray -Patient is asymptomatic, no leukocytosis, cough, congestion, short of breath -Patient started on Rocephin/Zithromax for community-acquired pneumonia -Continue guaifenesin -Continue duo nebs as needed Hypokalemia -Replace and continue monitor Chronic tobacco use -Patient counseled on cessation Chronic alcohol use -Monitor for withdrawal symptoms DVT prevention -Sequential compression devices Problem Qualifiers (1) Pneumonia: Qualified Codes: J18.1 - Lobar pneumonia, unspecified organism Jeronimo Gutierrez Mar 25, 2018 09:35
--- NOTE | 2018-03-25 10:05 | EKG ---
Date Performed: 03/25/2018 Time Performed: 09:42:02 PTAGE: 68 years EKG: Sinus rhythm WITH SHORT IA INTERVAL T-WAVE ABNORMALITY, CONSIDER INFERIOR AND ANTEROLATERAL ISCHEMIA ABNORMAL ECG PREVIOUS TRACING : 03/25/2018 08.42 No significant change from previous tracing noted. DOCTOR: Roel Oswald Interpretating Date/Time 03/25/2018 10:04:25
--- NOTE | 2018-03-25 10:06 | EKG ---
Date Performed: 03/25/2018 Time Performed: 08:42:06 PTAGE: 68 years EKG: SINUS TACHYCARDIA WITH SHORT NH INTERVAL T-WAVE ABNORMALITY, CONSIDER ANTEROLATERAL AND INF ERIOR ISCHEMIA ABNORMAL ECG PREVIOUS TRACING : 03/25/2018 01.45 No significant change from previous tracing noted. DOCTOR: Roel Oswald Interpretating Date/Time 03/25/2018 10:05:07
[2018-03-25 10:11] LABS: TROPONIN I 0.02 NG/ML (0.02-0.05)
[2018-03-25] MEDS: ASPIRIN EC 81 MG TABEC PO SCH (12:56)
--- NOTE | 2018-03-25 15:19 | MB ---
cc: Jorje Rachel MD, Hammad M MD DATE: 03/25/2018 I have reviewed hospital records and spoken with the patient. HISTORY OF PRESENT ILLNESS: The patient is a 68-year-old white man I am seeing for an abnormal EKG. He does not follow with any physicians and denies hypertension, diabetes, or hyperlipidemia. The patient on the day of admission had woken up in the morning. He could not move yet he was awake. Apparently, he laid there for several hours and finally his son returned home and called the emergency paramedics. Apparently, his glucose was 24 and he was given D10 with improvement of his sugar to the 130s and rapid improvement in mental status. The patient has absolutely no cardiopulmonary symptoms whatsoever. PAST MEDICAL HISTORY: Otherwise, left groin cyst. 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 He smokes 3/4 a pack per day and has 4 drinks per day. ALLERGIES: ANT BITES AND BEE STINGS. MEDICATIONS PRIOR TO ADMISSION: None. REVIEW OF SYSTEMS: Only remarkable for the above, and the fact that he does bruise, wears glasses and has had weight loss. LABORATORY DATA: EKG shows sinus rhythm with deeply inverted diffuse T-wave changes. Chest x-ray with early or mild pneumonia of the right middle lobe, possibly and COPD. Head CT: No acute abnormality with maxillary sinusitis. He is anemic with initial hematocrit 38.1, and repeat 33.1. He is macrocytic. Potassium initially 3.7, but has gone down to 3.1. This is being repleted. Creatinine 0.84, glucose is initially 431 and then subsequently 136. Troponins negative and CPK normal. Liver functions essentially normal. His albumin is low at 2.5. PHYSICAL EXAMINATION: VITAL SIGNS: Afebrile. Vital signs are stable. GENERAL: He is alert and oriented x 3 and thin. There are no xanthelasma and oropharyngeal mucosa normal. CHEST: Decreased breath sounds, clear. JVD normal. CARDIOVASCULAR: S1, S2. No murmurs or gallops. ABDOMEN: Benign. EXTREMITIES: Show no cyanosis, clubbing, or edema. Pulses 2/2 throughout without bruits. IMPRESSION: 1. Hypoglycemia with severe neurologic changes - resolved. 2. Markedly abnormal EKG in the absence of symptoms. 3. Tobacco abuse. 4. Chronic obstructive pulmonary disease. 5. Alcohol abuse. RECOMMENDATIONS: 1. Optimize electrolytes. 2. Deep venous thrombosis prophylaxis per primary service, along with the workup of hypoglycemia. 3. Echocardiogram is pending. 4. Would recommend pharmacologic SPECT nuclear to assess for significant myocardial ischemia. I would not pursue further workup beyond these 2 assuming both are normal. 5. Tobacco abstinence. 6. I will defer the management to the hospitalist service and be available should abnormalities arise. All questions have been answered. Jorje Rachel MD ASG/TL , 02:57 PM , 03:18 PM
[2018-03-25 16:12] LABS: HEMOGLOBIN A1C 5.2 % (4.3-6.0)
[2018-03-25] MEDS ORDERED: PILL SPLITTER OTHER PRN (17:15)
[2018-03-25] MEDS ORDERED: ENALAPRILAT 1.25 MG/ML VIAL IV PUSH PRN (17:15)
[2018-03-25] MEDS: cloNIDine HCL 0.1 MG TAB PO PRN (17:35)
--- NOTE | 2018-03-25 18:27 | ECHRPT ---
Indication: ABNORMAL EKG CONCLUSIONS The left ventricular systolic function is grossly normal on limited imaging. [id number] mitral valve regurgitation. There is trace tricuspid valve regurgitation. There is a small pericardial effusion present. This effusion is mostly on the anterior side without any evidence of tamponade. BP: 172 / 85 HR: 106 Rhythm: Sinus MEASUREMENTS (Male / Female) Normal Values Technical Quality:Fair 2D ECHO LV Diastolic Diameter PLAX 5.0 cm 4.2 - 5.9 / 3.9 - 5.3 cm LV Systolic Diameter PLAX 3.1 cm IVS Diastolic Thickness 0.8 cm 0.6 - 1.0 / 0.6 - 0.9 cm LVPW Diastolic Thickness 0.8 cm 0.6 - 1.0 / 0.6 - 0.9 cm LV Relative Wall Thickness 0.3 RV Internal Dim ED PLAX 2.0 cm LVOT Diameter 2.4 cm Aortic Root Diameter 3.6 cm LA Systolic Diameter LX 2.9 cm 3.0 - 4.0 / 2.7 - 3.8 cm M-MODE AV Cusp Separation MM 1.9 cm DOPPLER AV Peak Velocity 109.0 cm/s AV Peak Gradient 4.8 mmHg AV Mean Gradient 2.0 mmHg AV Velocity Time Integral 19.3 cm LVOT Peak Velocity 79.0 cm/s LVOT Peak Gradient 2.5 mmHg LVOT Velocity Time Integral 14.3 cm AV Area Cont Eq vti 3.4 cm AV Area Cont Eq pk 3.3 cm Mitral E Point Velocity 53.8 cm/s Mitral A Point Velocity 95.3 cm/s Mitral E to A Ratio 0.6 LV E' Lateral Velocity 5.3 cm/s Mitral E to LV E' Lateral Ratio 10.2 LV E' Septal Velocity 4.8 cm/s Mitral E to LV E' Septal Ratio 11.3 TR Peak Velocity 243.0 cm/s TR Peak Gradient 23.6 mmHg Right Atrial Pressure 10.0 mmHg Pulmonary Artery Systolic Pressu 33.6 mmHg Right Ventricular Systolic Press 33.6 mmHg PV Peak Velocity 74.4 cm/s PV Peak Gradient 2.2 mmHg FINDINGS LEFT VENTRICLE Normal left ventricular size. Wall thickness is normal. The left ventricular systolic function is grossly normal on limited imaging. RIGHT VENTRICLE Normal right ventricular size and systolic function. LEFT ATRIUM The left atrial size is normal. RIGHT ATRIUM The right atrial size is normal. ATRIAL SEPTUM No atrial level shunt is demonstrated by color flow Doppler interrogation. AORTA The aortic root and proximal ascending aorta are not well visualized. MITRAL VALVE Mild thickening of the mitral valve leaflets. [id number]-sh-ilvd mitral valve regurgitation. No mitral valve stenosis. AORTIC VALVE Trileaflet aortic valve. No aortic valve stenosis or regurgitation. TRICUSPID VALVE Structurally normal tricuspid valve. There is trace tricuspid valve regurgitation. The estimated pulmonary arterial pressure is 33.6 mmHg. PULMONARY VALVE No pulmonary valve regurgitation or stenosis. VESSELS The inferior vena cava is normal in size. PERICARDIUM There is a small pericardial effusion present. This effusion is mostly on the anterior side without any evidence of tamponade. Mango Wood DO (Electronically Signed) Final Date:25 March 2018 18:26
[2018-03-25] MEDS: METOPROLOL TARTRATE 25 MG TAB PO SCH (20:38)
[2018-03-25] MEDS ORDERED: cefTRIAXone INJ 1,000 MG in SODIUM CHLORIDE 0.9% INJ 100 ML IV SCH (22:00)
[2018-03-25] MEDS ORDERED: AZITHROMYCIN INJ 500 MG in SODIUM CHLOR 0.9% 250 ML INJ 250 ML IV SCH (23:00)
[2018-03-26] VITALS (15 sets, daily range): BP systolic 106–170; BP diastolic 66–91; PULSE 11–96; RESP 16–20; TEMP 96.3–98.6; O2SAT 95–100
--- NOTE | 2018-03-26 07:25 | HHI.PR ---
Subjective Remarks Patient seen and examined today for follow-up on pneumonia, hypoglycemia, abnormal EKG. Patient is doing well. Denies any new complaints. Patient has not had any chest discomfort. Patient blood pressure is mildly elevated. Patient remains afebrile Objective Vitals Vital Signs Date Time Temp Pulse Resp B/P (MAP) Pulse Ox O2 Delivery O2 Flow Rate FiO2 03/26/18 04:00 96.3 72 18 170/77 (108) 100 03/26/18 00:00 98.6 70 20 133/79 (97) 100 Manual Cuff/Auscultation 03/25/18 20:00 62 03/25/18 20:00 97.4 79 20 135/76 (95) 99 03/25/18 16:39 164/92 (116) 03/25/18 16:00 98.4 88 18 172/118 (136) 98 03/25/18 12:00 98.9 106 18 172/85 (114) 97 03/25/18 11:00 100 21 03/25/18 08:00 72 03/25/18 08:00 98.4 97 18 141/64 (89) 97 I/O 03/25/18 03/25/18 03/25/18 03/26/18 03/26/18 03/26/18 07:00 15:00 23:00 07:00 15:00 23:00 Intake Total 775 ml 150 ml 950 ml 0 ml Balance 775 ml 150 ml 950 ml 0 ml Intake Oral 600 ml 0 ml IV Total 775 ml 150 ml 350 ml # Voids 3 3 4 # Bowel Movements 0 2 Result Diagram: 03/25/18 0535 03/25/18 0535 Imaging Last Impressions Head CT 03/24/18 0000 Signed Impressions: Service Date/Time: Saturday, March 24, 2018 21:22 - CONCLUSION: 1. No acute intracranial abnormality demonstrated. 2. Atrophy. 3. Left maxillary sinusitis. Ben Goldsmith MD Chest X-Ray 03/24/18 0000 Signed Impressions: Service Date/Time: Saturday, March 24, 2018 20:17 - CONCLUSION: Early or mild pneumonia of the right middle lobe possible in the proper clinical setting. Lungs otherwise clear. Emphysema. Ben Goldsmith MD Objective Remarks GENERAL: Well-developed, well-nourished, in no acute distress. alert and orientated HEENT: Head is normocephalic without any lesions or masses noted. Facial features are symmetric. Eyes: Extraocular muscles are intact. Conjunctivae were clear. NECK: Supple without any masses. Trachea midline no deviation. No JVD, CARDIAC: Regular rhythm, regular rate. S1/S2 are heard. No murmurs gallops or rubs. LUNGS: Clear to auscultation bilaterally. No wheeze, rhonchi or rales. No use of accessory muscles on inspiration or expiration. ABDOMEN: Soft, nontender. Nondistended. Bowel sounds heard in all 4 quadrants. No organomegaly or masses. Negative rebound, negative guarding EXTREMITIES: No edema, pulses are equal bilaterally. No cyanosis or clubbing NEUROLOGY: Mood and affect appear appropriate. Cranial nerves II through XII grossly intact. Moving all extremities, speech is clear Procedures ECHOCARDIOGRAM CONCLUSIONS The left ventricular systolic function is grossly normal on limited imaging. [id number]-[id number]-[id number] mitral valve regurgitation. There is trace tricuspid valve regurgitation. There is a small pericardial effusion present. This effusion is mostly on the anterior side without any evidence of tamponade. Urinary Catheter: No Vascular Central Line Catheter: No A/P Assessment and Plan Hypoglycemia with profound weakness -Possible underlying diabetes, patient presented to the emergency department he had blood sugar of 431, after given D10 -Accu-Cheks during hospitalization ranged from 94-143 -Hemoglobin A1c 5.2 -Check insulin level, C-peptide, beta hydroxybutyrate, proinsulin, insulin antibody, cortisol level. -Accu-Cheks with sliding scale insulin, has not required any insulin -Counseled patient on glucose control, alcohol use Abnormal EKG Small pericardial effusion without tamponade -Patient is asymptomatic -EKG showing abnormal T waves in almost every lead showing possible signs of anterior lateral ischemia -Serial cardiac enzymes are unremarkable and do not show any signs of cardiac injury -Consult cardiology for further recommendations, who recommended myocardial perfusion study, echocardiogram -Echocardiogram: See results above -Continue aspirin -Continue Lopressor 12.5 mg twice daily -Start Nitropaste 1/2 inch every 6 hours -Lipid panel indicates LDL 39 -Myocardial perfusion study does indicate small moderately severe reversible defect involving the anterior lateral wall characteristic of ischemia -Discussed with cardiology who indicates that the patient will likely require cardiac catheterization, will transfer to the main hospital Early or mild pneumonia of the right middle lobe possible in the proper clinical setting per chest x-ray -Patient is asymptomatic, no leukocytosis, cough, congestion, short of breath -Patient started on Rocephin/Zithromax for community-acquired pneumonia, will discontinue IV antibiotics and start p.o. Ceftin/Zithromax -Continue guaifenesin -Continue duo nebs as needed Hypertension -Continue Lopressor 12.5 mg twice daily -Start lisinopril 5 mg daily Hypokalemia -Replace and continue monitor Chronic tobacco use -Patient counseled on cessation Chronic alcohol use -Monitor for withdrawal symptoms DVT prevention -Sequential compression devices Jeronimo Gutierrez Mar 26, 2018 07:25
[2018-03-26] MEDS: INSULIN ASPART SUPPLEMENTAL SCALE SQ SCH ×4 (08:00→21:00)
[2018-03-26] MEDS: LISINOPRIL 5 MG TAB PO SCH (08:27)
[2018-03-26] MEDS: CEFUROXIME AXETIL 500 MG TAB PO SCH ×2 (08:27→21:04)
[2018-03-26] MEDS: METOPROLOL TARTRATE 25 MG TAB PO SCH ×2 (08:27→21:03)
[2018-03-26] MEDS: AZITHROMYCIN 250 MG TAB PO SCH (08:28)
[2018-03-26] MEDS: guaiFENesin E.R. 600 MG TAB PO SCH ×2 (08:28→21:03)
[2018-03-26] MEDS: ASPIRIN EC 81 MG TABEC PO SCH (08:28)
[2018-03-26] MEDS: SODIUM CHLORIDE 0.9% FLUSH 10 ML FLUSH IV FLUSH SCH ×2 (08:28→21:04)
[2018-03-26 08:55] LABS: CALCIUM 8.3 MG/DL (8.5-10.1)
[2018-03-26 08:56] LABS: BICARBONATE 27.1 MEQ/L (21.0-32.0)
[2018-03-26 08:59] LABS: CREATININE 0.57 MG/DL (0.60-1.30)
[2018-03-26 10:31] LABS: CHOLESTEROL/ HDL RATIO 1.5 RATIO; HDL CHOLESTEROL 111.7 MG/DL (40.0-60.0)
[2018-03-26] MEDS ORDERED: REGADENOSON INJ 0.4 MG/5 ML SYR IV ONE (11:15)
--- NOTE | 2018-03-26 11:57 | TR ---
Date Performed: 03/26/2018 Time Performed: 11:28:10 DOCTOR: Vinayak Williamson DRUG LIST: CLINICAL HISTORY: REASON FOR TEST: REASON FOR ENDING: OBSERVATION: CONCLUSION: COMMENTS: ST-T changes were present through out testing with no changes. ECG is non-diagnostic. Nuclear imaging is pending.
--- NOTE | 2018-03-26 12:40 | RADRPT ---
EXAM DATE/TIME: 03/26/2018 10:49 [place] COMPARISON: No previous studies available for comparison. INDICATIONS : Abnormal EKG. DOSE: 26.2 mCi Tc99m Myoview at stress. 8.2 mCi Tc99m Myoview at rest. 0.4 mg Lexiscan STRESS SYMPTOMS: Short of breath. EJECTION FRACTION: 48% MEDICAL HISTORY : Current smoker. SURGICAL HISTORY : None. ENCOUNTER: Initial ACUITY: 1 day PAIN SCALE: 2/10 LOCATION: Bilateral chest TECHNIQUE: The patient underwent pharmacologic stress with infusion of prescribed dose. Continuous ECG tracing was monitored during stress. Gated SPECT imaging was performed after stress and conventional SPECT i maging was performed at rest. The examination was performed on a SPECT/CT scanner, both attenuation and non-corrected datasets were reviewed. FINDINGS: DISTRIBUTION: The maximum perfused segment at stress is in the septal wall. PERFUSION STUDY: There is a small moderately severe perfusion defect involving the anterior lateral wall with redistri bution. There is summed stress score of 6. GATED STUDY: There is intact wall motion and thickening without hypokinetic or dyskinetic segments. CONCLUSION: 1. Small moderately severe reversible defect involving the anterior lateral wall characteristic of is chemia. 2. Normal wall motion is mildly decreased calculated ejection fraction. RISK CATEGORY: Intermediate (1-3% Annual Mortality Rate) Dillon Martin MD on March 26, 2018 at 12:35 Board Certified Radiologist. This report was verified electronically.
[2018-03-26] MEDS ORDERED: SODIUM CHLOR 0.9% 1000 ML INJ 1,000 ML IV SCH (13:00)
[2018-03-26] MEDS ORDERED: ASPIRIN 325 MG TAB PO SCH (13:00)
[2018-03-26] MEDS ORDERED: DIAZEPAM 5 MG TAB PO SCH (13:00)
[2018-03-26] MEDS ORDERED: diphenhydrAMINE HCL 50 MG CAP PO SCH (13:00)
[2018-03-26] MEDS ORDERED: POTASSIUM CHLORIDE 10 MEQ CONTROLLED RELEASE TAB PO ONE (13:15)
[2018-03-26] MEDS: NITROGLYCERIN 2% OINT 1 GM PACKET TOPICAL SCH ×3 (13:41→23:34)
[2018-03-27] VITALS (25 sets, daily range): BP systolic 127–182; BP diastolic 77–113; PULSE 62–115; RESP 16–20; TEMP 97.8–98.7; O2SAT 97–100
[2018-03-27] MEDS: NITROGLYCERIN 2% OINT 1 GM PACKET TOPICAL SCH ×4 (05:29→23:12)
[2018-03-27 06:41] LABS: AUTOMATED NEUTROPHIL # 2.7 TH/MM3 (1.8-7.7); BASOPHIL % 0.7 % (0.0-2.0); EOSINOPHIL # 0.1 TH/MM3 (0-0.4); EOSINOPHIL % 2.1 % (0.0-4.0); HEMATOCRIT 35.3 % (39.0-51.0); HEMOGLOBIN 11.8 GM/DL (13.0-17.0); LYMPH % 27.6 % (9.0-44.0); LYMPHOCYTE # 1.3 TH/MM3 (1.0-4.8); MEAN CELL VOLUME 101.2 FL (80.0-100.0); MEAN CORPUSCULAR HEMOGLOBIN 33.9 PG (27.0-34.0); MEAN CORPUSCULAR HGB CONC 33.5 % (32.0-36.0); MEAN PLATELET VOLUME 10.3 FL (7.0-11.0); MONO % 9.7 % (0.0-8.0); MONOCYTE # 0.4 TH/MM3 (0-0.9); NEUT % 59.9 % (16.0-70.0); PLATELET COUNT 164 TH/MM3 (150-450); RED BLOOD COUNT 3.48 MIL/MM3 (4.50-5.90); RED CELL DISTRIBUTION WIDTH 15.3 % (11.6-17.2); WHITE BLOOD COUNT 4.6 TH/MM3 (4.0-11.0)
[2018-03-27 07:02] LABS: CALCIUM 8.1 MG/DL (8.5-10.1); CREATININE 0.66 MG/DL (0.60-1.30)
[2018-03-27] MEDS: INSULIN ASPART SUPPLEMENTAL SCALE SQ SCH ×4 (08:30→21:00)
[2018-03-27] MEDS ORDERED: POTASSIUM CHLORIDE 20 MEQ CONTROLLED RELEASE TAB PO ONE ×2 (08:30)
[2018-03-27] MEDS ORDERED: LIDOCAINE HCL 1% PF 30 ML VIAL ONE (09:09)
[2018-03-27] MEDS ORDERED: HEPARIN-NS/PF FLUSH BAG 2,000 ML IV FLUSH ONE (09:09)
[2018-03-27] MEDS ORDERED: MIDAZOLAM HCL 2 MG/2 ML VIAL ONE (09:17)
[2018-03-27] MEDS ORDERED: BIVALIRUDIN 250 MG VIAL ONE (09:34)
--- NOTE | 2018-03-27 09:36 | MB ---
cc: Wilfrido Muro MD DATE: 03/27/2018 INTERVENTIONAL CARDIOLOGY CONSULT REASON FOR CONSULTATION: Referred by Dr. Rahcel to be evaluated for cardiac catheterization. HISTORY OF PRESENT ILLNESS: This is a 68-year-old man who has not been to a doctor in 30 years. He has smoked. He smoked since he was a child, currently, 1/2-3/4 pack per day. He also drinks heavily, typically has a beer, wine and 2 mixed drinks every single day. He is not very active. He has been losing weight. He has lost 20-25 pounds in the past couple years. He used to weigh 130 pounds, now only weighs 105 pounds. He has diminished appetite. He tells me that he went a day and a half without eating prior to coming in, yet he was still drinking. He woke up in the morning and could not move. He described it as sleep paralysis. EVAC came and found his blood sugar was 24 and gave him D10 with marked improvement. Since admission, he has been noted to have severe EKG changes with deep T-wave inversions across the precordium. To evaluate this further, he underwent a nuclear stress test. Nuclear stress test was completed yesterday. This shows intermediate risk category with a small, moderately severe reversible defect involving the anterolateral wall characteristic of ischemia. After this, Dr. Rachel had him transferred to [place] and requested I perform a cardiac catheterization. His lipid assessment is pending. He denies family history of coronary artery disease. Denies prior hypertension or diabetes but has not been seeing any doctors. He is not very active. He says he has had diminished energy and feels weak for the past couple years. Denies any chest heaviness. SOCIAL HISTORY: He is . He has 2 children. 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 He drinks heavily, as described above. FAMILY HISTORY: Negative for heart disease. REVIEW OF SYSTEMS: Otherwise negative, except as mentioned above. PHYSICAL EXAMINATION: GENERAL: Exam reveals a very thin, white male, alert and oriented, in no acute distress. VITAL SIGNS: Appear unremarkable. HEENT: Exam unremarkable. NECK: No JVD. No bruits. CHEST: Diminished breath sounds. CARDIOVASCULAR: Cardiac exam shows a soft S1, S2. Regular rate and rhythm. There are no murmurs, no gallops. ABDOMEN: Soft, nontender. EXTREMITIES: No clubbing, cyanosis or edema. Pulses are intact. EKG shows sinus rhythm with very deep T-wave inversions in multiple leads. Cardiac enzymes have been negative. Potassium has been low, he got 40 mEq p.o. this morning. IMPRESSION: Status post episode of hypoglycemia. He has also had hypokalemia. Of concern is he has dramatic EKG changes suggestive of ischemia. This could also be due to a central neurological event. He has got significant risk factors for coronary disease, mainly being a lifelong smoking. RECOMMENDATIONS: I think with the pronounced EKG changes and the abnormalities on the stress test, doing a diagnostic catheterization would be appropriate. I discussed the possibility of doing intervention if critical disease is found. Informed consent has been obtained. MD CATY Jordan/HALI , 09:14 AM , 09:35 AM
[2018-03-27] MEDS ORDERED: CLOPIDOGREL 300 MG TAB ONE (09:50)
[2018-03-27] MEDS ORDERED: ASPIRIN 325 MG TAB ONE (09:56)
[2018-03-27] MEDS ORDERED: oxyCODONE/ACETAMINOPHEN 10 MG/325 MG TAB PO PRN (10:15)
[2018-03-27] MEDS ORDERED: ACETAMINOPHEN 325 MG TAB PO PRN (10:15)
[2018-03-27] MEDS ORDERED: MORPHINE SULFATE 4 MG/ML INJ IV PUSH PRN (10:15)
[2018-03-27] MEDS ORDERED: BACITRACIN OINT 0.9 GM PKT TOP ONE (10:15)
[2018-03-27] MEDS ORDERED: oxyCODONE/ACETAMINOPHEN 5 MG/325 MG TAB PO PRN (10:15)
[2018-03-27] MEDS ORDERED: MISC INFORMATION XX ONE (10:15)
[2018-03-27] MEDS ORDERED: SODIUM CHLORIDE 0.9% FLUSH 10 ML FLUSH IV FLUSH PRN (10:15)
[2018-03-27] MEDS ORDERED: ONDANSETRON HCL 4 MG/2 ML VIAL IV PUSH PRN (10:15)
--- NOTE | 2018-03-27 10:18 | CATHPROC ---
[employer] HIS Report Study Information Study Number Admission Scheduled Start Study Start [id number] Mar 24 2018 10:38PM 03/27/2018 Mar 27 2018 9:01AM [place] [facility] Cardiac Catheterization Admit Source Facility Department Emergency department [facility] Physician and Clinical Staff Initial Wilfrido Golden Commercial Sales Specialist Sam Galan,NEREIDA Recorder Ana Maria Bennett ,TONIAN Scrub Hostjoe, Donnie,RT(R) Procedures Performed Procedure Location (Site) Vessel Name Angiogram LV LV Ventricle Coronary Angiograms LCA Left Coronary Coronary Angiograms RCA Right Coronary L Heart Cath PTCA RCA Mid Right Coronary Stent RCA Mid Right Coronary Wire insertion Fem Art (right) Femoral Art Equipment Time Service Station Helper Description Size Mfg Part Number Used/Scraped WIRE, BALANCE MIDDLEWEIGHT [id number] 09:34 [employer] 190CM Used 190CM *[id number] WIRE, BALANCE MIDDLEWEIGHT [id number] 10:09 [employer] 190CM Used 190CM *[id number] TRANSDUCER, TRUWAVE [id number] 09:24 VINCENT MOE * Used W/STOCKCOCK *[id number] *[id number] *[id number] *[id number] PIGTAIL ANG. 145 INFINITI [id number] CATHETER *[id number] 09:51 [employer] [facility] [employer] ANGIOSEAL, FR6 VIP FR 6 Used *[id number] 09:24 [employer]RI[employer] PACK, CCL CUSTOM * Used *[id number] 09:24 [employer] PACER PEN, SKIN DUAL W/ RULER * Used *[id number] BALLOON, 3.75 X 15MM NC [id number] 09:47 [employer] 15MM Used EUPHORA *[id number] 09:42 [employer] STENT, 3.5 22 INTEGRITY 3.5 22 Used *[id number] 09:44 [employer] MEDICAL 30 LEEROY INDEFLATOR Used *[id number] 09:24 [employer] MEDICAL SHEATH, FR6.5 PRELUDE 11CM FR 6.5 038ACT Used *[id number] 09:24 [employer] MEDICAL WIRE, 3MMJ .035 180CM 180CM Used *[id number] 09:24 [facility] MANIFOLD, 4 PORT * Used *[id number] 09:24 [employer] OMNIPAQUE, 350 MG, 150ML 150ML [id number] Used [id number] 09:24 [facility] BLANKET,WARM AIR CCL * Used *[id number] Equipment Model, Serial, Lot Number and Expiration Data Description Model Number Serial Number Lot Number Expiration Date ANGEL JENKINS [id number] 10-01-2018 BALLOON, 3.75 X 15MM [place] [id number] 01-14-2020 EUPHORA STENT, 3.5 22 INTEGRITY [id number] 10-11-2019 History: Allergies Allergy Reaction bee venom protein (honey bee) Anaphylaxis History: Risk Factors Family History of Hypertension Dyslipidemia Previous MA Previous Heart Failure Premature CAD No No No No No Prior Valve Prior PCI Prior CABG Surgery No No No Cerebrovascular Peripheral Artery Chronic Lung On Dialysis Diabetes Diabetes Therapy Disease Disease Disease No No No No Yes Oral History: Stress Tests Stress or Imaging Studies Performed Yes Stress Test SPECT Stress Test SPECT Result Stress Test SPECT Ischemia Risk/Extent Yes Positive Intermediate History: Other Current Smoker Method Packs a Day Years Used Pack Years Yes Cigarettes 1 60 60 Labs Hgb (g/dl) Hct (%) WBC (l/cumm) Platelets (thousands) 11.60-17.00 35.00-51.00 4.00-11.00 150.00-450.00 11.8 35.3 4.6 164 Glucose (mg/dl) BUN (mg/dl) Creatinine (mg/dl) BUN:Creatinine (1:x) 74.00-106.00 7.00-18.00 0.50-1.30 10.00-20.00 81 3 0.6 5 Na (meq/l) K (meq/l) 136.00-145.00 3.50-5.10 141 3.1 Troponin I (ng/ml) CPK (u/l) CPK-MB (ng/ML) 0.02-0.05 26.00-308.00 0.50-3.60 0.02 57 Not Drawn Medication Medication Total Dose (Bolus/Oral) Medication Total Dosage/Unit ANGIOMAX BOLUS 7 mL ASPIRIN 325 mg PLAVIX 600 mg VERSED 1 mg Medications (Bolus/Oral) Medication Time Given Dosage/Unit Administered By Reason VERSED 03/27/2018 9:20:05 AM 1 mg Sam Galan 1 mg VERSED given in lab by Sam Galan RN in Left Antecubital via Peripheral IV. Ordered by Wilfrido Guerrero. ANGIOMAX BOLUS 03/27/2018 9:36:12 AM 7 mL Sam Galan 7 mL ANGIOMAX BOLUS given in lab by Sam Galan RN in Left Antecubital via Peripheral IV. Ordered by Wilfrido Muro. PLAVIX 03/27/2018 9:57:22 AM 600 mg Sam Galan 600 mg PLAVIX given in lab by Sam Galan RN via Oral. Ordered by Wilfrido Muro. ASPIRIN 03/27/2018 9:57:31 AM 325 mg Sam Galan 325 mg ASPIRIN given in lab by Sam Galan RN via Oral. Ordered by Wilfrido Muro. Medication (Drip) Medication Time Given Dosage/Unit Concentration/Unit Diluent (ml) Solution ANGIOMAX DRIP 03/27/2018 9:37:54 AM 1.75 mg/kg/hr 250 mg 50 NaCl .9 1.75 mg/kg/hr ANGIOMAX DRIP given in lab by Sam Galan RN via Peripheral IV. Pump/Drip Flow = 16 .45 ml/hr using NaCl .9 with a concentration of 250 mg in 50 ml. Ordered by Wilfrido Muro. IV Solutions 03/27/2018 9:19:48 AM 50 mL (IV) NaCl .9 IV Solutions given by Sam Galan RN in Left Antecubital via Peripheral IV. Pump/Drip Flow using NaCl .9. Ordered by Wilfrido Muro. Initial Case Assessment Cardiovascular HR Rhythm NIBP Chest Pain 69 sr 169/100 0 Edema Present Skin color Skin None Normal Warm Dry Circulatory - Right Pulses Dorsalis Pedis Femoral 2 2 Scale (0,1,2,3,4,d) Circulatory - Left Pulses Dorsalis Pedis Femoral 2 2 Scale (0,1,2,3,4,d) Circulatory - Lower Extremities Color Lower Right Color Lower Left Normal Normal Neurological State Oriented to time-place- Alert Moves all extremities person Respiration - General Respiration Rate SpO2 (%) (B/min) 13 100 Final Case Assessment Cardiovascular HR Rhythm NIBP Chest Pain 66 sr 156/93 0 Edema Present Skin color Skin None Normal Warm Dry Circulatory - Right Pulses Dorsalis Pedis Femoral 2 2 Scale (0,1,2,3,4,d) Circulatory - Left Pulses Dorsalis Pedis Femoral 2 2 Scale (0,1,2,3,4,d) Circulatory - Lower Extremities Color Lower Right Color Lower Left Normal Normal Neurological State Oriented to time-place- Alert Moves all extremities person Respiration - General Respiration Rate SpO2 (%) (B/min) 14 100 Chronological Log Time Study Chronological Log 8:57:23 Patient arrived via Bed. 8:57:28 Patient Name, D.O.B, / Armband Verified By R.N. 9:01:35 Consent signed by the physician and the patient and verified by the [facility] staff. 9:01:37 Verbal Stimulation=2 Physical Stimulation=2 Airway=2 Respiration=2 TOTAL=8. (0=absent, 1=li mited, 2=present) 9:02:07 Presedation assessment performed by [facility] RN. 9:02:12 Patient has been NPO for More than 6Hrs. 9:02:13 Skin Breakdown- none per patient Vitals capture started with the following parameters, Patient=Adult, Interval=5 min, Initial Pr turbjv=764 mmHg, 9:10:54 Deflation Rate=5 mmHg, Cuff placed on Right Ankle 9:11:49 HR=73 bpm, DHPK=685/101 mmhg, BkQ9=260.0 %, Resp=10 B/min, Pain=0, James=10, Hernandez=2 9:16:34 HR=70 bpm, YKMP=151/100 mmhg, SpO2=99.0 %, Resp=13 B/min, Pain=0, James=10, Hernandez=2 9:16:52 A # 20 IV was noted in the Antecubital (left). Grade = 0 9:17:14 Bilateral groins prepped with 2% chlorhexidine, and draped after a 3 minute waiting time. IV Solutions given by Sam Galan, NEREIDA in Left Antecubital via Peripheral IV. Pump/Drip Flow using NaCl .9. Ordered by 9:19:48 Wilfrido Muro. 9:20:01 MD arrived. 9:20:05 1 mg VERSED given in lab by Sam Galan, RN in Left Antecubital via Peripheral IV. Ordere d by Wilfrido Muro. 9:20:14 History and physical on the chart or being dictated. Assessment: Initial Case, HR=69 BPM, Rhythm=sr, WOBW=151/100 mmhg, Chest Pain=0, Edema=None, Col or=Normal, Skin = Warm, Dry Right Pulses: Hamlet Ped=2, Femoral=2 Left Pulses: Hamlet Ped=2, Femoral=2 9:20:15 Lower Right Extremities: Color=Normal Lower Left Extremities: Color=Normal Neurological: State=Alert, Ox3, WEBB Respiration: Resp=13 B/min, PdH5=659 % 9:20:22 Reference ECG taken 9:20:37 Pressure channel 1 zeroed. Time Out. Correct patient, correct procedure, correct physician, power injector loaded, or not l oaded with contrast with 9:20:59 surgical team present. Time Out Concurred by MD and individual staff in procedure. 9:21:02 Case Start 9:21:39 HR=82 bpm, GTPD=885/92 mmhg, EqD7=164.0 %, Resp=11 B/min, Pain=0, James=10, Hernandez=2 9:24:13 Access site was Right Femoral Artery. 9:24:20 A SHEATH, FR6.5 PRELUDE 11CM FR 6.5 was advanced into the Fem Art (right) using the Percutan eous technique. A PIGTAIL ANG. 145 INFINITI CATHETER FR 6 was advanced over a wire. OMNIPAQUE, 350 MG, 150ML 150 ML was 9:24:32 used for injections. Recorded Pressure: LV, HR=74, Condition=Condition 1 9:25:32 (Left Ventricle) LV 148/0/9 9:26:32 HR=71 bpm, HBRA=975/85 mmhg, SpO2=97.0 %, Resp=17 B/min, Pain=0, James=10, Hernandez=2 9:26:42 The LV was injected at 8 cc/sec for a total of 32. OMNIPAQUE, 350 MG, 150ML 150ML used. Recorded Pressure: LV, Ao, HR=78, Condition=Condition 1 9:27:21 (Left Ventricle) LV 128/-2/7, (Aorta) Ao 134/64/94 After removing the current catheter a JL 4.5 INFINITI CATHETER FR 6 was advanced over a WIRE, 3M MJ .035 180CM 9:27:48 180CM. Recorded Pressure: Ao, HR=71, Condition=Condition 1 9:28:52 (Aorta) Ao 149/73/105 9:29:43 The LCA was injected and visualized at various angles. OMNIPAQUE, 350 MG, 150ML 150ML used. After removing the current catheter a 3DRC INFINITI CATHETER FR 6 was advanced over a WIRE, 3MMJ .035 180CM 9:31:22 180CM. 9:31:31 HR=79 bpm, QOEP=593/78 mmhg, SpO2=99.0 %, Resp=15 B/min, Pain=0, James=10, Hernandez=2 9:32:52 The RCA was injected and visualized at various angles. OMNIPAQUE, 350 MG, 150ML 150ML used. After removing the current catheter a JR 4.0 GUIDE CATHETER FR 6 was advanced over a WIRE, 3MMJ .035 180CM 9:34:59 180CM. 7 mL ANGIOMAX BOLUS given in lab by Sam Galan RN in Left Antecubital via Peripheral IV. Or dered by Bhaskar, 9:36:12 Wilfrido. 9:36:30 HR=71 bpm, VMBF=275/76 mmhg, SpO2=99.0 %, Resp=14 B/min, Pain=0, James=10, Hernnadez=2 1.75 mg/kg/hr ANGIOMAX DRIP given in lab by Sam Galan, NEREIDA via Peripheral IV. Pump/Drip Flow = 16.45 ml/hr 9:37:54 using NaCl .9 with a concentration of 250 mg in 50 ml. Ordered by Wilfrido Muro. 9:38:45 A WIRE, BALANCE MIDDLEWEIGHT 190CM 190CM was inserted via Fem Art (right). 9:41:03 Interventional wire has crossed the lesion 9:41:31 HR=68 bpm, PFOK=202/74 mmhg, SpO2=99.0 %, Resp=17 B/min, Pain=0, James=10, Hernandez=2 An STENT, 3.5 22 INTEGRITY 3.5 22 Bare Metal Stent was inserted through a JR 4.0 GUIDE CATHETER FR 6 over a 9:43:44 WIRE, BALANCE MIDDLEWEIGHT 190CM 190CM. A STENT, 3.5 22 INTEGRITY 3.5 22 was deployed using a 30 LEEROY INDEFLATOR at 10 atmospheres for 40 seconds in 9:44:14 the RCA Mid. 9:44:50 Re-inflated the stent balloon in the RCA Mid to 12 LEEROY for 25 seconds. 9:45:41 Delivery device removed 9:46:28 HR=66 bpm, TIKP=071/96 mmhg, SpO2=99.0 %, Resp=14 B/min, Pain=0, James=10, Hernandez=2 A BALLOON, 3.75 X 15MM NC EUPHORA 15MM was inserted over WIRE, BALANCE MIDDLEWEIGHT 190CM 190CM via 9:47:55 the Fem Art (right). A BALLOON, 3.75 X 15MM NC EUPHORA 15MM over a WIRE, BALANCE MIDDLEWEIGHT 190CM 190CM in the RCA Mid 9:49:17 was inflated using a 30 LEEROY INDEFLATOR at 20 leeroy for 20 sec. 9:49:57 Balloon Removed. 9:51:15 Wire removed 9:51:32 Catheter was removed 9:51:33 HR=74 bpm, URSL=487/93 mmhg, SpO2=99.0 %, Resp=12 B/min, Pain=0, James=10, Hernandez=2 9:51:45 An injection in the Fem Art (right) was made through the SHEATH, FR6.5 PRELUDE 11CM FR 6.5. 9:52:47 ANGIOSEAL, FR6 VIP FR 6 placement in the Fem Art (right) 9:53:00 Pressure held to Right Fem 9:53:27 Case End 9:53:37 No case complications noted. 9:53:38 Cine recording checked. 9:53:50 Bedside Report will be given. 9:53:51 Implantable Device card placed in patient's chart. 9:53:59 A Left Heart Cath was performed. Assessment: Final Case, HR=66 BPM, Rhythm=sr, CQBP=153/93 mmhg, Chest Pain=0, Edema=None, Color =Normal, Skin = Warm, Dry Right Pulses: Hamlet Ped=2, Femoral=2 Left Pulses: Hamlet Ped=2, Femoral=2 9:54:58 Lower Right Extremities: Color=Normal Lower Left Extremities: Color=Normal Neurological: State=Alert, Ox3, WEBB Respiration: Resp=14 B/min, GfW3=706 % 9:56:34 HR=66 bpm, PTZQ=783/93 mmhg, JgF5=367.0 %, Resp=11 B/min, Pain=0, James=10, Hernandez=2 9:57:22 600 mg PLAVIX given in lab by Sam Galan, RN via Oral. Ordered by Wilfrido Muro. 9:57:31 325 mg ASPIRIN given in lab by Sam Galan, RN via Oral. Ordered by Wilfrido Muro. 10:01:39 HR=77 bpm, FLNG=257/92 mmhg, SpO2=99.0 %, Resp=7 B/min, Pain=0, James=10, Hernandez=2 10:05:38 Angiomax off 10:06:40 HR=72 bpm, KVYX=949/101 mmhg, SpO2=99.0 %, Resp=10 B/min, Pain=0, James=10, Hernandez=2 10:11:39 HR=78 bpm, KXTL=759/105 mmhg, SpO2=99.0 %, Resp=14 B/min, Pain=0, James=10, Hernandez=2 10:16:38 HR=80 bpm, EMIR=540/109 mmhg, SpO2=98.0 %, Resp=12 B/min, Pain=0, James=10, Hernandez=2 10:16:46 Sterile dressing applied to site 10:17:55 Vitals capture stopped. 10:20:50 Patient moved to [facility] End Study - Contrast Media Used In Study Contrast Total Opened (mL) Total Used (mL) Total Wasted (mL) Omnipaque 120 120 0 End Study - Maximum Contrast Load Max Contrast Load (mL) 391.7 End Study - Radiation Exposure Fluoro Time (minutes) 6.9 End Study - Patient Disposition Complications Transferred To Interventional Outcome No Telemetry Bed successful
--- NOTE | 2018-03-27 10:35 | MA ---
cc: Wilfrido Muro MD, Alan S MD DATE: 03/27/2018 PROCEDURES PERFORMED: 1. Left heart catheterization. 2. Left ventriculography. 3. Coronary angiography. 4. Balloon angioplasty and stenting of the mid-right coronary artery. 5. Right femoral angiography with Angio-Seal placement. DESCRIPTION OF PROCEDURE: The patient was brought to the cardiac Instrument Engineer in a fasting state. The right groin was prepped and draped in sterile fashion. Using 1% lidocaine for local anesthesia, a 6.5-Turkmen sheath was inserted in the right femoral artery requiring only a single front wall stick. Left ventricular pressure was then recorded using a pigtail catheter, followed by left ventriculography and then a pullback. Coronary angiography was completed using a left 4.5 Davion for the left coronary artery and a 3DRC for the right coronary artery. He had critical disease of the right coronary artery so I opted to proceed with intervention. A 6-Turkmen 4 right 4 Davion guiding catheter was used to engage the right coronary artery. The vessel was wired with a BMW wire and then directly stented utilizing a 3.5 x 22 bare metal Integrity stent. I took it up to 10 atmospheres. I did want to go any higher because distally I did not think the vessel would tolerate the size of the stent. There was still a waist in the center of the stent. I then deflated the balloon, pulled it back a few millimeters and reexpanded to 12 atmospheres and this time the stent fully expanded. There was still mild stenosis in the middle of the stent so I used a 3.75 x 15 mm NC balloon at 20 atmospheres in the central part of the lesion and now the result was very satisfactory. The patient tolerated the procedure well. There were no complications. The procedure was done with Angiomax. He is being loaded with 600 mg of Plavix at the end of the case. FINDINGS: I. HEMODYNAMICS: Left ventricular pressure is 128/0 with an end-diastolic pressure of 7. Aortic pressure is 134/64 with a mean of 94. There was no gradient during pullback from the left ventricle to the aorta. II. LEFT VENTRICULOGRAPHY: Left ventriculography shows normal left ventricular function. EF is about 60%. III. CORONARY ANGIOGRAPHY: The left coronary system appears essentially normal, of large caliber. There was maybe 5% mid to distal LAD irregularities and 5% irregularities in the circumflex system. There is very slight bridging of the mid LAD; however, no flow-limiting lesions are seen in the left coronary system. The right coronary artery appears normal except in the mid-section; there is a long tubular 90% stenosis which extends up to the origin of a bifurcating marginal branch and one of those branches supplies the distal part of the PDA. IV. RESULTS OF STENTING: Following stenting of the mid-right coronary artery, the acute marginal branch is jailed. There is no residual stenosis, now seen in the right coronary artery with great BRUNO 3 flow and excellent stent apposition. CONCLUSIONS: 1. Normal hemodynamics. 2. Normal left ventricular function. 3. Critical single vessel disease, now status post stenting with a 22 mm long, 3.5 mm diameter bare metal stent. PLAN: The patient needs to take aspirin and Plavix, ideally should take Plavix for 1 year. Compliance is questionable since he has not been to a doctor in 30 years and that is why I chose not to use a drug-eluting stent. The patient smokes heavily and drinks heavily. He has been counseled to quit smoking and curtail his drinking. MD CATY Jordan/HALI , 10:02 AM , 10:34 AM
[2018-03-27] MEDS: CEFUROXIME AXETIL 500 MG TAB PO SCH ×2 (10:39→21:10)
[2018-03-27] MEDS: LISINOPRIL 5 MG TAB PO SCH (10:40)
[2018-03-27] MEDS: METOPROLOL TARTRATE 25 MG TAB PO SCH ×2 (10:40→21:10)
[2018-03-27] MEDS: guaiFENesin E.R. 600 MG TAB PO SCH ×2 (10:40→21:00)
[2018-03-27] MEDS: AZITHROMYCIN 250 MG TAB PO SCH (10:40)
[2018-03-27] MEDS: ASPIRIN EC 81 MG TABEC PO SCH (10:43)
[2018-03-27] MEDS: SODIUM CHLORIDE 0.9% FLUSH 10 ML FLUSH IV FLUSH SCH ×2 (10:43→21:00)
[2018-03-27] MEDS: SODIUM CHLOR 0.9% 1000 ML INJ 1,000 ML IV SCH ×2 (12:47→20:04)
[2018-03-27] MEDS ORDERED: SODIUM CHLORIDE 0.9% FLUSH 10 ML FLUSH IV FLUSH SCH (21:00)
[2018-03-28] VITALS (24 sets, daily range): BP systolic 130–141; BP diastolic 69–86; PULSE 72–108; RESP 17–22; TEMP 98.2–98.6; O2SAT 98–100
[2018-03-28 05:34] LABS: AUTOMATED NEUTROPHIL # 3.6 TH/MM3 (1.8-7.7); BASOPHIL % 0.4 % (0.0-2.0); EOSINOPHIL # 0.1 TH/MM3 (0-0.4); EOSINOPHIL % 1.5 % (0.0-4.0); HEMATOCRIT 34.5 % (39.0-51.0); HEMOGLOBIN 11.7 GM/DL (13.0-17.0); LYMPH % 19.6 % (9.0-44.0); MEAN CELL VOLUME 101.9 FL (80.0-100.0); MEAN CORPUSCULAR HEMOGLOBIN 34.7 PG (27.0-34.0); MEAN PLATELET VOLUME 9.9 FL (7.0-11.0); MONOCYTE # 0.5 TH/MM3 (0-0.9); NEUT % 69.5 % (16.0-70.0); PLATELET COUNT 162 TH/MM3 (150-450); RED BLOOD COUNT 3.38 MIL/MM3 (4.50-5.90); RED CELL DISTRIBUTION WIDTH 14.9 % (11.6-17.2); WHITE BLOOD COUNT 5.1 TH/MM3 (4.0-11.0)
[2018-03-28 05:55] LABS: BICARBONATE 23.8 MEQ/L (21.0-32.0); CALCIUM 7.6 MG/DL (8.5-10.1); CREATININE 0.6 MG/DL (0.60-1.30)
[2018-03-28 05:58] LABS: CHOLESTEROL/ HDL RATIO 1.73 RATIO; HDL CHOLESTEROL 80.9 MG/DL (40.0-60.0)
[2018-03-28] MEDS: NITROGLYCERIN 2% OINT 1 GM PACKET TOPICAL SCH ×4 (06:12→23:06)
[2018-03-28] MEDS ORDERED: POTASSIUM CHLORIDE 25 MEQ EFFERVESCENT TAB PO ONE (06:45)
[2018-03-28 07:48] LABS: MAGNESIUM 1.5 MG/DL (1.5-2.5)
[2018-03-28] MEDS: INSULIN ASPART SUPPLEMENTAL SCALE SQ SCH ×4 (08:00→20:45)
[2018-03-28] MEDS: CLOPIDOGREL 75 MG TAB PO SCH (08:54)
[2018-03-28] MEDS: ASPIRIN EC 81 MG TABEC PO SCH (08:54)
[2018-03-28] MEDS: METOPROLOL TARTRATE 25 MG TAB PO SCH (08:55)
[2018-03-28] MEDS: guaiFENesin E.R. 600 MG TAB PO SCH ×2 (08:55→20:40)
[2018-03-28] MEDS: CEFUROXIME AXETIL 500 MG TAB PO SCH ×2 (08:55→20:39)
[2018-03-28] MEDS: AZITHROMYCIN 250 MG TAB PO SCH (08:55)
[2018-03-28] MEDS: SODIUM CHLORIDE 0.9% FLUSH 10 ML FLUSH IV FLUSH SCH ×2 (08:57→20:40)
[2018-03-28] MEDS ORDERED: ASPIRIN 81 MG CHEW TAB PO SCH (09:00)
[2018-03-28] MEDS: LISINOPRIL 5 MG TAB PO SCH (09:05)
--- NOTE | 2018-03-28 09:27 | PD.CARD.PN ---
Subjective Subjective Remarks This note is from my visit with him 9:30AM. No chest pain or other complaints Objective Medications Current Medications Medications (Trade) Dose Ordered Sig/Natty Route Start Time Stop Time Status Last Admin (NS Flush) 2 ml UNSCH PRN IV FLUSH 03/24/18 22:45 (NS Flush) 2 ml BID IV FLUSH 03/25/18 09:00 03/28/18 08:57 (Tylenol) 650 mg Q4H PRN PO 03/24/18 22:45 (Zofran Inj) 4 mg Q6H PRN IVP 03/24/18 22:45 (Narcan Inj) 0.4 mg UNSCH PRN IV PUSH 03/24/18 22:45 (Milk Of Magnesia Liq) 30 ml Q12H PRN PO 03/24/18 22:45 (Senokot) 17.2 mg Q12H PRN PO 03/24/18 22:45 (Dulcolax Supp) 10 mg DAILY PRN RECTAL 03/24/18 22:45 (Lactulose Liq) 30 ml DAILY PRN PO 03/24/18 22:45 (Mucinex Er) 600 mg BID PO 03/24/18 22:45 03/28/18 08:55 (Duoneb Neb) 1 ampule Q2HR NEB PRN NEB 03/24/18 22:45 (D50w (Vial) Inj) 50 ml UNSCH PRN IV PUSH 03/24/18 22:45 (Glucagon Inj) 1 mg UNSCH PRN OTHER 03/24/18 22:45 (NovoLOG SUPPLEMENTAL SCALE) 1 ACHS SLIDING SCALE SQ 03/25/18 08:00 (Ecotrin Ec) 162 mg DAILY PO 03/25/18 12:00 03/28/18 08:54 (Lopressor) 12.5 mg Q12HR PO 03/25/18 21:00 03/28/18 08:55 (Catapres) 0.1 mg Q6H PRN PO 03/25/18 17:15 03/25/18 17:35 (Vasotec Inj) 1.25 mg Q6H PRN IV PUSH 03/25/18 17:15 03/27/18 12:09 (Pill Splitter) 1 ea UNSCH PRN OTHER 03/25/18 17:15 (Prinivil) 5 mg DAILY PO 03/26/18 09:00 03/28/18 09:05 (Zithromax) 500 mg DAILY PO 03/26/18 09:00 03/28/18 08:55 (Ceftin) 500 mg Q12HR PO 03/26/18 09:00 03/28/18 08:55 (Nitroglycerin 2% Oint) 0.5 inch Q6HR TOPICAL 03/26/18 13:00 03/28/18 06:12 (Aspirin) [address] [employer] PO 03/26/18 13:00 03/30/18 12:59 (Benadryl) [address] [employer] PO 03/26/18 13:00 03/30/18 12:59 (Valium) [address] [employer] PO 03/26/18 13:00 03/30/18 12:59 (Tylenol) 325 mg Q4H PRN PO 03/27/18 10:15 (Percocet 5-325 Mg) 1 tab Q4H PRN PO 03/27/18 10:15 (Percocet 10-325 Mg) 1 tab Q4H PRN PO 03/27/18 10:15 (Morphine Inj) 2 mg Q30M PRN IV PUSH 03/27/18 10:15 (Plavix) 75 mg DAILY PO 03/28/18 09:00 03/28/18 08:54 (Zofran Inj) 4 mg Q4H PRN IV PUSH 03/27/18 10:15 Vital Signs / I&O Vital Signs Date Time Temp Pulse Resp B/P (MAP) Pulse Ox O2 Delivery O2 Flow Rate FiO2 03/28/18 07:50 98.2 91 17 133/83 (100) 100 03/28/18 06:30 92 03/28/18 05:08 94 03/28/18 04:00 82 03/28/18 03:52 98.2 76 18 141/82 (101) 98 03/28/18 03:00 88 03/28/18 02:00 78 03/28/18 01:00 94 03/28/18 00:32 89 03/27/18 23:06 97.8 77 18 149/88 (108) 98 03/27/18 23:00 75 03/27/18 22:00 92 03/27/18 21:00 100 03/27/18 20:00 98.6 97 20 140/85 (103) 97 03/27/18 20:00 98 03/27/18 19:00 115 03/27/18 18:00 88 03/27/18 17:00 102 03/27/18 16:00 88 03/27/18 15:00 88 03/27/18 15:00 98.1 87 16 143/95 (111) 100 03/27/18 14:00 74 03/27/18 13:00 66 03/27/18 12:00 66 03/27/18 11:00 78 03/27/18 11:00 98.7 78 18 182/113 (136) 100 03/27/18 10:00 71 I/O 03/27/18 03/27/18 03/27/18 03/28/18 03/28/18 03/28/18 07:00 15:00 23:00 07:00 15:00 23:00 Intake Total 340 ml 920 ml 380 ml Output Total 500 ml 425 ml Balance -160 ml 495 ml 380 ml Intake Oral 340 ml 720 ml 380 ml IV Total 200 ml Output Urine Total 500 ml 425 ml # Voids 3 Physical Exam Alert Chest clear CV [id number] Abd soft Ext no edema, right groin OK Laboratory Laboratory Tests Test 03/28/18 03:28 White Blood Count 5.1 TH/MM3 Red Blood Count 3.38 MIL/MM3 Hemoglobin 11.7 GM/DL Hematocrit 34.5 % Mean Corpuscular Volume 101.9 FL Mean Corpuscular Hemoglobin 34.7 PG Mean Corpuscular Hemoglobin Concent 34.0 % Red Cell Distribution Width 14.9 % Platelet Count 162 TH/MM3 Mean Platelet Volume 9.9 FL Neutrophils (%) (Auto) 69.5 % Lymphocytes (%) (Auto) 19.6 % Monocytes (%) (Auto) 9.0 % Eosinophils (%) (Auto) 1.5 % Basophils (%) (Auto) 0.4 % Neutrophils # (Auto) 3.6 TH/MM3 Lymphocytes # (Auto) 1.0 TH/MM3 Monocytes # (Auto) 0.5 TH/MM3 Eosinophils # (Auto) 0.1 TH/MM3 Basophils # (Auto) 0.0 TH/MM3 CBC Comment DIFF FINAL Differential Comment Blood Urea Nitrogen 3 MG/DL Creatinine 0.60 MG/DL Random Glucose 88 MG/DL Calcium Level 7.6 MG/DL Magnesium Level 1.5 MG/DL Sodium Level 140 MEQ/L Potassium Level 3.1 MEQ/L Chloride Level 106 MEQ/L Carbon Dioxide Level 23.8 MEQ/L Anion Gap 10 MEQ/L Estimat Glomerular Filtration Rate 133 ML/MIN Total Creatine Kinase 96 U/L Triglycerides Level 83 MG/DL Cholesterol Level 140 MG/DL LDL Cholesterol 43 MG/DL HDL Cholesterol 80.9 MG/DL Cholesterol/HDL Ratio 1.73 RATIO Assessment and Plan Problem List: (1) Hypokalemia ICD Codes: E87.6 - Hypokalemia Plan: repletion ordered (2) Abnormal weight loss ICD Codes: R63.4 - Abnormal weight loss Plan: per primary service (3) Diabetes mellitus ICD Codes: E11.9 - Type 2 diabetes mellitus without complications Plan: glucoses elevated. Per primary service (4) Hypoglycemia ICD Codes: E16.2 - Hypoglycemia, unspecified Plan: he went 1.5 days without eating but was still drinking (5) Alcohol abuse ICD Codes: F10.10 - Alcohol abuse, uncomplicated Plan: counseled to reduce (6) Tobacco abuse ICD Codes: Z72.0 - Tobacco use Plan: counseled (7) Stented coronary artery ICD Codes: Z95.5 - Presence of coronary angioplasty implant and graft Plan: cont ASA and clopidogrel (8) CAD (coronary artery disease) ICD Codes: I25.10 - Atherosclerotic heart disease of [place] coronary artery without angina pectoris Plan: 1 vessel. Excellent stent result. (9) ECG abnormality ICD Codes: R94.31 - Abnormal electrocardiogram [ECG] [EKG] Status: Acute Wilfrido Muro MD Mar 28, 2018 09:27
[2018-03-28] MEDS: MAGNESIUM SULFATE 1 GM PREMIX 100 ML IV SCH ×2 (10:22→11:38)
[2018-03-28 13:33] LABS: AUTOMATED NEUTROPHIL # 3.6 TH/MM3 (1.8-7.7); BASOPHIL % 0.3 % (0.0-2.0); EOSINOPHIL # 0.1 TH/MM3 (0-0.4); EOSINOPHIL % 1.5 % (0.0-4.0); HEMATOCRIT 33.5 % (39.0-51.0); HEMOGLOBIN 11.7 GM/DL (13.0-17.0); LYMPH % 19.6 % (9.0-44.0); MEAN CELL VOLUME 99.8 FL (80.0-100.0); MEAN CORPUSCULAR HEMOGLOBIN 34.9 PG (27.0-34.0); MEAN PLATELET VOLUME 9.5 FL (7.0-11.0); MONO % 10.7 % (0.0-8.0); MONOCYTE # 0.6 TH/MM3 (0-0.9); NEUT % 67.9 % (16.0-70.0); PLATELET COUNT 165 TH/MM3 (150-450); RED BLOOD COUNT 3.35 MIL/MM3 (4.50-5.90); RED CELL DISTRIBUTION WIDTH 15.1 % (11.6-17.2); WHITE BLOOD COUNT 5.3 TH/MM3 (4.0-11.0)
--- NOTE | 2018-03-28 13:39 | EKG ---
Date Performed: 03/28/2018 Time Performed: 04:47:12 PTAGE: 68 years EKG: Sinus rhythm Prolonged QT interval LVH with secondary repolarization abnormality Extensive ST-T changes may be du e to hypertrophy and/or ischemia Abnormal ECG NO PREVIOUS TRACING DOCTOR: Vinayak Williamson Interpretating Date/Time 03/28/2018 13:36:39
[2018-03-28 13:42] LABS: INTERNATIONAL NORMALIZED RATIO 0.9 RATIO; PROTHROMBIN TIME - PATIENT 9.4 SEC (9.8-11.6)
--- NOTE | 2018-03-28 13:46 | HHI.PR ---
Subjective Remarks I was paged because a stroke alert. spoke w RN and apparently daughter and came and told them that patient was having trouble with his speech. I spoke with patient's daughter and she tells me that earlier around 1030 he started telling her that he was not feeling well. Earlier before he saw Dr. Muro and everything was fine. He asked to take a nap and when he woke up and was having trouble with his speech. Apparently he didn't recognize his daughter when I arrived a bedside, the stroke alert was already called, pt was following commands as far as moving his arms and legs. however he wasn't able to recognize /read words or pictures presented to him by stroke team. Pt knew his name but didn't know where he was. I also spoke w Dr. Morataya, manager of construction neurologist and updated him of pt's condition. BS was 133 at the time. Objective Vitals Vital Signs Date Time Temp Pulse Resp B/P (MAP) Pulse Ox O2 Delivery O2 Flow Rate FiO2 03/28/18 11:30 98.5 77 17 138/86 (103) 100 03/28/18 09:00 108 03/28/18 08:00 03/28/18 08:00 94 03/28/18 07:50 98.2 91 17 133/83 (100) 100 03/28/18 07:00 92 03/28/18 06:30 92 03/28/18 05:08 94 03/28/18 04:00 82 03/28/18 03:52 98.2 76 18 141/82 (101) 98 03/28/18 03:00 88 03/28/18 02:00 78 03/28/18 01:00 94 03/28/18 00:32 89 03/27/18 23:06 97.8 77 18 149/88 (108) 98 03/27/18 23:00 75 03/27/18 22:00 92 03/27/18 21:00 100 03/27/18 20:00 98.6 97 20 140/85 (103) 97 03/27/18 20:00 98 03/27/18 19:00 115 03/27/18 18:00 88 03/27/18 17:00 102 03/27/18 16:00 88 03/27/18 15:00 88 03/27/18 15:00 98.1 87 16 143/95 (111) 100 03/27/18 14:00 74 I/O 03/27/18 03/27/18 03/27/18 03/28/18 03/28/18 03/28/18 06:59 14:59 22:59 06:59 14:59 22:59 Intake Total 340 ml 720 ml 580 ml 100 ml Output Total 500 ml 425 ml Balance -160 ml 295 ml 580 ml 100 ml Intake Oral 340 ml 720 ml 380 ml IV Total 200 ml 100 ml Output Urine Total 500 ml 425 ml # Voids 3 Result Diagram: 03/28/18 1321 03/28/18 0328 Imaging Last Impressions Myocardial Perfusion Scan Nuc Med 03/26/18 0600 Signed Impressions: Service Date/Time: Monday, March 26, 2018 10:49 - CONCLUSION: 1. Small moderately severe reversible defect involving the anterior lateral wall characteristic of ischemia. 2. Normal wall motion is mildly decreased calculated ejection fraction. RISK CATEGORY: Intermediate (1-3%% Annual Mortality Rate) Dillon Martin MD Head CT 03/24/18 0000 Signed Impressions: Service Date/Time: Saturday, March 24, 2018 21:22 - CONCLUSION: 1. No acute intracranial abnormality demonstrated. 2. Atrophy. 3. Left maxillary sinusitis. Ben Goldsmith MD Chest X-Ray 03/24/18 0000 Signed Impressions: Service Date/Time: Saturday, March 24, 2018 20:17 - CONCLUSION: Early or mild pneumonia of the right middle lobe possible in the proper clinical setting. Lungs otherwise clear. Emphysema. Ben Goldsmith MD Objective Remarks GENERAL: laying in bed flat CARDIAC: Regular rhythm, regular rate. S1/S2 are heard. No murmurs gallops or rubs. LUNGS: No use of accessory muscles on inspiration or expiration. ABDOMEN: non distended, EXTREMITIES: moves all extremities upon command, has difficulty reading words presented to him or recognizing pics. NEUROLOGY: Mood and affect appear appropriate. Cranial nerves II through XII grossly intact. Moving all extremities, speech is clear Procedures ECHOCARDIOGRAM CONCLUSIONS The left ventricular systolic function is grossly normal on limited imaging. [id number] mitral valve regurgitation. There is trace tricuspid valve regurgitation. There is a small pericardial effusion present. This effusion is mostly on the anterior side without any evidence of tamponade. A/P Problem List: (1) ECG abnormality ICD Code: R94.31 - Abnormal electrocardiogram [ECG] [EKG] Status: Acute (2) Pneumonia ICD Code: J18.9 - Pneumonia, unspecified organism Status: Acute (3) Hyperglycemia ICD Code: R73.9 - Hyperglycemia, unspecified Assessment and Plan stroke alert- today. Pt unable to tell me where he is, per nursing staff had trouble recognizing his own daughter, cannot read simple words and recognize pics. Dr Morataya consulted and notified. Currently at the CT getting CTA. will order MRI, MRA, carotid u/s. keep head of bed flat, allow permissive HTN. Hypoglycemia with profound weakness on admission. -Possible underlying diabetes, patient presented to the emergency department he had blood sugar of 431, after given D10 -Check insulin level, C-peptide, beta hydroxybutyrate, proinsulin, insulin antibody, cortisol level. -Accu-Cheks with sliding scale insulin, has not required any insulin -Counseled patient on glucose control, alcohol use Abnormal EKG Small pericardial effusion without tamponade s/p cardiac cath w Critical single vessel disease, now status post stenting . on ASA and plavix -cardiology following. -Echocardiogram: reviewed -Continue Lopressor 12.5 mg twice daily -on Nitropaste 1/2 inch every 6 hours -Lipid panel indicates LDL 39 Early or mild pneumonia of the right middle lobe possible in the proper clinical setting per chest x-ray -Patient is asymptomatic, no leukocytosis, cough, congestion, short of breath -s/p Rocephin/Zithromax for community-acquired pneumonia, now on p.o. Ceftin/ Zithromax -Continue guaifenesin -Continue duo nebs as needed Hypertension -hold Lopressor 12.5 mg twice daily -hold lisinopril 5 mg daily -allow permissive HTN Hypokalemia -Replace and continue monitor Chronic tobacco use -Patient counseled on cessation Chronic alcohol use -Monitor for withdrawal symptoms DVT prevention -Sequential compression devices Discharge Planning f/u on imagine studies post stroke alert. s/p cardiac cath as well on ASA and plavix. awaiting final recs from neuro Problem Qualifiers (1) Pneumonia: Qualified Codes: J18.1 - Lobar pneumonia, unspecified organism Yue Ludwig MD Mar 28, 2018 13:46
--- NOTE | 2018-03-28 13:49 | RADRPT ---
EXAM DATE/TIME: 03/28/2018 13:30 [facility] COMPARISON: CT BRAIN W/O CONTRAST, March 24, 2018, 21:22. INDICATIONS : Stroke alert, confusion. RADIATION DOSE: 42.21 CTDIvol (mGy) This report was called by Dr. Madrigal to Dr. Morataya at 1: 45 PM on 03/28/18 MEDICAL HISTORY : Non-responsive. SURGICAL HISTORY : Non-responsive. ENCOUNTER: Initial ACUITY: 1 day PAIN SCALE: Non-responsive LOCATION: cranial TECHNIQUE: Multiple contiguous axial images were obtained of the head. Using automated exposure control and adj ustment of the mA and/or kV according to patient size, radiation dose was kept as low as reasonably a chievable to obtain optimal diagnostic quality images. DICOM format image data is available electro nically for review and comparison. FINDINGS: CEREBRUM: Diffuse cerebral atrophy is stable. No evidence of midline shift, mass lesion, hemorrhage or acute in farction. There is a tiny possible subacute right frontal subdural hematoma measuring 4 mm in width w hich is unchanged. No mass effect is noted. No acute extra-axial bleed is noted. POSTERIOR FOSSA: The cerebellum and brainstem are intact. The 4th ventricle is midline. The cerebellopontine angle i s unremarkable. EXTRACRANIAL: The visualized portion of the orbits is intact. SKULL: The calvaria is intact. No evidence of skull fracture. CONCLUSION: 1. No acute infarct, acute hemorrhage, midline shift or acute extra-axial bleed. 2. Diffuse cerebral atrophy. 3. Possible tiny subacute right frontal subdural hematoma measuring 4 mm in width which results in no mass effect upon the adjacent frontal lobe and is unchanged from previous admission. Servando Madrigal MD on March 28, 2018 at 13:34 Board Certified Radiologist. This report was verified electronically.
[2018-03-28] MEDS ORDERED: IODIXANOL 320 MG/ML 10 ML VIAL (for Rad CT) IVCONTRAST ONE (13:51)
[2018-03-28 13:56] LABS: TROPONIN I 1.53 NG/ML (0.02-0.05)
--- NOTE | 2018-03-28 14:05 | RADRPT ---
EXAM DATE/TIME: 03/28/2018 13:38 [facility] COMPARISON: No previous studies available for comparison. INDICATIONS : Stroke alert, confusion. IV CONTRAST: 100 cc Visipaque (iodixanol) IV ; Cumulative dose for multiple exams. RADIATION DOSE: 27.69 CTDIvol (mGy) ; Combined studies MEDICAL HISTORY : Non-responsive. SURGICAL HISTORY : Non-responsive. ENCOUNTER: Initial ACUITY: 1 day PAIN SCALE: Non-responsive LOCATION: neck TECHNIQUE: Volumetric scanning was performed using a multi-row detector CT scanner. The data was post processed with a variety of visualization algorithms including full volume maximum intensity projection, multi -planar sliding thin slab reformation, curved planar reformation, and surface rendering techniques. Using automated exposure control and adjustment of the mA and/or kV according to patient size, radiat ion dose was kept as low as reasonably achievable to obtain optimal diagnostic quality images. DICO M format image data is available electronically for review and comparison. FINDINGS: There is excellent visualization of the major intracranial arteries out to the second-order branch ve ssels. There is no evidence for aneurysm, vessel truncation or stenosis, and no evidence for vascula r malformation. CONCLUSION: 1. Unremarkable CT angiography of the brain. Vinayak Cruz MD on March 28, 2018 at 13:54 Board Certified Radiologist. This report was verified electronically.
[2018-03-28] MEDS ORDERED: ENALAPRILAT 1.25 MG/ML VIAL IV PUSH PRN (14:15)
[2018-03-28] MEDS ORDERED: DEXTROSE 50% IN WATER 50 ML VIAL(D50) IV PUSH PRN ×2 (14:15→14:45)
[2018-03-28] MEDS ORDERED: GLUCAGON 1 MG/ML VIAL OTHER PRN ×2 (14:15→14:45)
--- NOTE | 2018-03-28 14:25 | RADRPT ---
EXAM DATE/TIME: 03/28/2018 13:38 [facility] COMPARISON: No previous studies available for comparison. INDICATIONS : Stroke alert, confusion. IV CONTRAST: 100 cc Visipaque (iodixanol) IV ; Cumulative dose for multiple exams. RADIATION DOSE: 27.69 CTDIvol (mGy) ; Combined studies - Brain/Sinuses MEDICAL HISTORY : Non-responsive. SURGICAL HISTORY : Non-responsive. ENCOUNTER: Initial ACUITY: 1 day PAIN SCALE: Non-responsive LOCATION: neck Elevated flow velocities and ICA/CCA ratios have been found to correlate with increased degrees of vessel stenosis, calculated as percentage of diameter relative to a normal segment of distal ICA/CCA. TECHNIQUE: Volumetric scanning was performed using a multirow detector CT scanner. The data was post processed with a variety of visualization algorithms including full-volume maximum intensity projection, multip lanar sliding thin-slab reformation, curved-planar reformation, and surface-rendering techniques. Us ing automated exposure control and adjustment of the mA and/or kV according to patient size, radiatio n dose was kept as low as reasonably achievable to obtain optimal diagnostic quality images. DICOM f ormat image data is available electronically for review and comparison. FINDINGS: No abnormality is identified within the lung apices. There is normal origin of vessels from the arch without evidence of proximal stenosis. Vertebral arteries are codominant. Examination of the right common carotid artery demonstrates the vessel to be widely patent. There is 0-10% stenosis at the origin of the internal carotid artery with minimal calcific plaque More distal ly the cervical internal carotid artery is intact. Examination of the left common carotid artery demonstrates the vessel to be widely patent. There is 0 -10% stenosis at the origin of the internal carotid artery with minimal calcific plaque More distally the cervical internal carotid artery is intact. Percent stenosis is calculated using the diameter of the stenotic region over the diameter of the nor mal distal internal carotid artery. CONCLUSION: 1. No evidence of hemodynamically significant lesion. No occlusion is seen. Vinayak Cruz MD on March 28, 2018 at 14:03 Board Certified Radiologist. This report was verified electronically.
[2018-03-28] MEDS: cloNIDine HCL 0.1 MG TAB PO PRN (14:33)
[2018-03-28] MEDS: SODIUM CHLOR 0.9% 1000 ML INJ 1,000 ML IV SCH (14:35)
[2018-03-28] MEDS ORDERED: SODIUM CHLORIDE 0.9% FLUSH 10 ML FLUSH IV FLUSH PRN (14:45)
--- NOTE | 2018-03-28 15:19 | MB ---
cc: Conor Morataya MD, PhD DATE: 03/28/2018 REASON FOR CONSULTATION: Stroke alert. HISTORY OF PRESENT ILLNESS: Mr. Perdomo is a very nice 68-year-old man who underwent cardiac catheterization with stent placement yesterday, was doing well until today, suddenly developed confusion and disorientation with no focal deficits. Stroke alert was called. Since the onset, his symptoms have been improving dramatically. Initially, he was unable to read phrases. He did not have aphasia; however, but mainly disorientation, not knowing where he was. PAST MEDICAL AND SURGICAL HISTORY: History of coronary artery disease, recent stent placement yesterday. He has a history of groin cyst removal. No previous history of TIA, migraine or seizure. CURRENT MEDICATIONS: 1. Vasotec p.r.n. 2. Sliding scale insulin. 3. Plavix 75 mg daily. 4. Tylenol p.r.n. 5. Percocet p.r.n. 6. Morphine p.r.n. 7. Zofran p.r.n. 8. Aspirin 325 mg daily. 9. Valium p.r.n. 10. Benadryl p.r.n. NEUROLOGICAL EXAMINATION: VITAL SIGNS: His blood pressure is 136/86, pulse 77, respiratory rate is 17, temperature 98 degrees. HIGHER CORTICAL FUNCTION: At this time, he is alert. He is disoriented to date and place, recalls 0 of 3 objects in 3 minutes. Remote memory is normal. He can read now, showing improvement. He can recognize pictures, which he could not do earlier. There is no evidence of aphasia. He can follow commands, even complicated commands. He can repeat phrases. There is no neglect. CRANIAL NERVES: Intact. MOTOR EXAM: 5/5 strength of all groups. There is no drift. Reflexes are symmetric. DIAGNOSTIC STUDIES: CT of the brain: No acute changes present. There is diffuse atrophy. There is possible tiny subacute right frontal subdural hematoma measuring 4 mm with no mass effect. Head CTA is normal. Neck CTA pending. LABORATORY DATA: The white count is 5300, hemoglobin 11.7, hematocrit 33.5%; platelet count 165,000. Sodium is 132, potassium 4.4, chloride is 106, CO2 is 23.8, BUN is 3, creatinine 0.6, calcium 7.6. Troponin 1.53. LDL 43, HDL 80, cholesterol to HDL ratio 1.73. IMPRESSION: Transient global amnesia, doubt stroke or transient ischemic attack. He is not a candidate for TPA as I do not think this is stroke. He is rapidly improving. I think this is transient global amnesia. Furthermore, there is a questionable subdural hematoma, which appears to be subacute versus artifact. RECOMMENDATION: Continue Plavix and aspirin. We will get an MRI of the brain to further characterize the possibility of whether or not he has a subdural. Also, further evaluate for acute stroke. I will have to check with MR to be sure this is okay with recent stent placement. Also, check echocardiogram. We will followup on the CTA. Conor Morataya MD, PhD MICHAEL/MARCIA , 02:23 PM , 03:19 PM
[2018-03-28 16:24] LABS: HEMOGLOBIN A1C 5.4 % (4.3-6.0)
[2018-03-28] MEDS ORDERED: INSULIN ASPART SUPPLEMENTAL SCALE SQ SCH (17:00)
[2018-03-28 17:54] LABS: C-PEPTIDE 0.98 ng/mL (0.80-3.85)
--- NOTE | 2018-03-28 19:14 | RADRPT ---
EXAM DATE/TIME: 03/28/2018 18:04 [facility] COMPARISON: MRA BRAIN W/O CONTRAST, March 28, 2018, 18:04. CTA CAROTID ARTERIES W 3D RECON, March 28, 2018, 13:3 8. CTA BRAIN W 3D RECON, March 28, 2018, 13:38. CT BRAIN W/O CONTRAST, March 28, 2018, 13:30. INDICATIONS : CVA. MEDICAL HISTORY : Cardiovascular disease SURGICAL HISTORY : [employer] Integuty cardiac cath. ENCOUNTER: Initial ACUITY: 1 day PAIN SCORE: 12/11 LOCATION: Bilateral cranial TECHNIQUE: Multiplanar, multisequence MRI of the brain was performed without contrast. FINDINGS: CEREBRUM: The ventricles are normal for age. No evidence of midline shift, mass lesion, hemorrhage or acute in farction. No extraaxial fluid collections are seen. The pituitary gland and suprasellar cistern are normal in configuration. WHITE MATTER: Mild scattered subcentimeter foci of chronic flair signal abnormality in the white matter both verteb ral hemispheres. POSTERIOR FOSSA: The cerebellum and brainstem are intact. The 4th ventricle is midline. The cerebellopontine angle is unremarkable. The cerebellar tonsils are normal in position. DIFFUSION IMAGING: No focal areas of restricted diffusion are seen. No evidence of acute infarction. EXTRACRANIAL: The visualized portions of the orbits and paranasal sinuses are unremarkable. CONCLUSION: 1. No acute infarct or other acute intracranial abnormality. 2. Mild chronic white matter changes. Ben Goldsmith MD on March 28, 2018 at 19:10 Board Certified Radiologist. This report was verified electronically.
--- NOTE | 2018-03-28 19:15 | RADRPT ---
EXAM DATE/TIME: 03/28/2018 18:04 [facility] COMPARISON: MRI BRAIN W/O CONTRAST, March 28, 2018, 18:04. CTA CAROTID ARTERIES W 3D RECON, March 28, 2018, 13:3 8. CTA BRAIN W 3D RECON, March 28, 2018, 13:38. CT BRAIN W/O CONTRAST, March 28, 2018, 13:30. INDICATIONS : Stroke. MEDICAL HISTORY : Cardiovascular disease SURGICAL HISTORY : [employer] Integuty cardiac cath. ENCOUNTER: Initial ACUITY: 1 day PAIN SCORE: 1/10 LOCATION: Bilateral cranial Please note a normal MRA of the brain does not entirely exclude the possibility of a small aneurysm, nor the possibility of distal intracranial vessel disease. TECHNIQUE: 3D time of flight MRA was performed. Source images, multiplanar STS MIP, and 3D volume MIP reconstru ctions were reviewed. FINDINGS: There is excellent visualization of the major intracranial arteries out to the second-order branch ve ssels. There is no evidence for aneurysm, vessel truncation or stenosis, and no evidence for vascula r malformation. CONCLUSION: Normal brain MRA. Ben Goldsmith MD on March 28, 2018 at 19:11 Board Certified Radiologist. This report was verified electronically.
--- NOTE | 2018-03-28 23:38 | EKG ---
Date Performed: 03/28/2018 Time Performed: 14:18:28 PTAGE: 68 years EKG: Sinus rhythm Prolonged QT interval LVH with secondary repolarization abnormality Extensive ST-T changes may be du e to hypertrophy and/or ischemia Abnormal ECG PREVIOUS TRACING : 03/28/2018 04.47 Since the previous tracing, no significant change noted DOCTOR: Mango Wood Interpretating Date/Time 03/28/2018 23:36:09
[2018-03-29] VITALS (28 sets, daily range): BP systolic 123–145; BP diastolic 71–82; PULSE 68–96; RESP 18–20; TEMP 97.9–98.5; O2SAT 97–100
[2018-03-29] MEDS: SODIUM CHLOR 0.9% 1000 ML INJ 1,000 ML IV SCH ×2 (04:19→18:21)
[2018-03-29] MEDS: NITROGLYCERIN 2% OINT 1 GM PACKET TOPICAL SCH ×3 (05:03→18:20)
[2018-03-29] MEDS: INSULIN ASPART SUPPLEMENTAL SCALE SQ SCH ×4 (08:00→21:00)
--- NOTE | 2018-03-29 08:34 | HHI.PR ---
Subjective Remarks Patient seen and examined this am, vitals are stable and patient is afebrile. Patient feels well today. Daughter is at bedside. He states upon discharge is conceived his daughter for a couple weeks. He is concerned because he only has Medicare part B and being able to afford his medications. Daughter is currently looking into other payment arrangements for him to get follow-up care. He does not have a doctor. They would like to speak with someone concerning this. Patient states he feels better than his baseline. He thinks that his episode yesterday was due to taking multiple medications at the same time. Denies chest pain or shortness of breath. Objective Vital Signs Date Time Temp Pulse Resp B/P (MAP) Pulse Ox O2 Delivery O2 Flow Rate FiO2 03/29/18 07:57 99 Room Air 03/29/18 07:57 97.9 91 18 124/72 (89) 99 03/29/18 06:00 91 03/29/18 05:00 89 03/29/18 04:00 Room Air 03/29/18 04:00 98.4 96 20 123/72 (89) 97 03/29/18 04:00 96 03/29/18 03:00 92 03/29/18 02:00 90 03/29/18 01:00 87 03/29/18 00:00 84 03/29/18 00:00 98.2 84 20 136/74 (94) 97 03/29/18 00:00 Room Air 03/28/18 23:00 89 03/28/18 22:00 91 03/28/18 21:00 72 03/28/18 20:00 91 03/28/18 20:00 98.6 91 22 130/69 (89) 98 03/28/18 16:00 72 03/28/18 15:57 98.2 76 17 131/82 (98) 100 03/28/18 15:00 80 03/28/18 13:00 72 03/28/18 12:00 76 03/28/18 11:30 98.5 77 17 138/86 (103) 100 03/28/18 11:00 76 03/28/18 10:00 98 03/28/18 09:00 108 I/O 03/28/18 03/28/18 03/28/18 03/29/18 03/29/18 03/29/18 07:00 15:00 23:00 07:00 15:00 23:00 Intake Total 380 ml 200 ml 480 ml 700 ml Output Total 700 ml Balance 380 ml 200 ml -220 ml 700 ml Intake Oral 380 ml 480 ml IV Total 200 ml 700 ml Output Urine Total 700 ml # Voids 3 # Bowel Movements 2 Result Diagram: 03/28/18 1321 03/28/18 0328 Imaging Last Impressions Neck CTA 03/28/18 0000 Signed Impressions: Service Date/Time: Wednesday, March 28, 2018 13:38 - CONCLUSION: 1. No evidence of hemodynamically significant lesion. No occlusion is seen. Vinayak Cruz MD Head Magnetic Resonance Angiography 03/28/18 0000 Signed Impressions: Service Date/Time: Wednesday, March 28, 2018 18:04 - CONCLUSION: Normal brain MRA. Ben Goldsmith MD Head CTA 03/28/18 0000 Signed Impressions: Service Date/Time: Wednesday, March 28, 2018 13:38 - CONCLUSION: 1. Unremarkable CT angiography of the brain. Vinayak Cruz MD Head CT 03/28/18 0000 Signed Impressions: Service Date/Time: Wednesday, March 28, 2018 13:30 - CONCLUSION: 1. No acute infarct, acute hemorrhage, midline shift or acute extra-axial bleed. 2. Diffuse cerebral atrophy. 3. Possible tiny subacute right frontal subdural hematoma measuring 4 mm in width which results in no mass effect upon the adjacent frontal lobe and is unchanged from previous admission. Servando Madrigal MD Brain MRI 03/28/18 0000 Signed Impressions: Service Date/Time: Wednesday, March 28, 2018 18:04 - CONCLUSION: 1. No acute infarct or other acute intracranial abnormality. 2. Mild chronic white matter changes. Ben Goldsmith MD Myocardial Perfusion Scan Nuc Med 03/26/18 0600 Signed Impressions: Service Date/Time: Monday, March 26, 2018 10:49 - CONCLUSION: 1. Small moderately severe reversible defect involving the anterior lateral wall characteristic of ischemia. 2. Normal wall motion is mildly decreased calculated ejection fraction. RISK CATEGORY: Intermediate (1-3%% Annual Mortality Rate) Dillon Martin MD Chest X-Ray 03/24/18 0000 Signed Impressions: Service Date/Time: Saturday, March 24, 2018 20:17 - CONCLUSION: Early or mild pneumonia of the right middle lobe possible in the proper clinical setting. Lungs otherwise clear. Emphysema. Ben Goldsmith MD Objective Remarks GENERAL: Well-appearing, no acute distress SKIN: Warm and dry. HEAD: Normocephalic. EYES: No scleral icterus. No injection or drainage. NECK: Supple, trachea midline. No JVD or lymphadenopathy. CARDIOVASCULAR: Regular rate and rhythm without murmurs, gallops, or rubs. RESPIRATORY: Breath sounds equal bilaterally. No accessory muscle use. GASTROINTESTINAL: Abdomen soft, non-tender, nondistended. MUSCULOSKELETAL: No cyanosis, or edema. A/P Problem List: (1) CAD (coronary artery disease) ICD Code: I25.10 - Atherosclerotic heart disease of [place] coronary artery without angina pectoris (2) Hypoglycemia ICD Code: E16.2 - Hypoglycemia, unspecified (3) Tobacco abuse ICD Code: Z72.0 - Tobacco use (4) Stented coronary artery ICD Code: Z95.5 - Presence of coronary angioplasty implant and graft (5) Alcohol abuse ICD Code: F10.10 - Alcohol abuse, uncomplicated (6) Pneumonia ICD Code: J18.9 - Pneumonia, unspecified organism Status: Acute Assessment and Plan This is a 68-year-old male patient who was initially brought to the ED for hypoglycemia. Patient was noted to have a blood sugar of 24 and without significant medical problems. EKG on admission was significant for T-wave inversions. He was admitted for observation. Subsequently on March 28 a stroke alert was called due to patient unable to talk and was unable to recognize family members in the room. Transient global amnesia Seen and evaluated by Dr. Morataya. Doubt stroke or transient ischemic attack. Mental status improving. There is questionable subdural hematoma which appears to be subacute versus artifact. He suggested that we continue Plavix and aspirin. MRI ordered to further identify a subdural hematoma is present or not. MRI negative for any acute intracranial abnormality. Echo on March 25 reveals normal systolic function, mild mitral valve regurg, mild tricuspid regurg Hypoglycemia Hemoglobin A1c 5.4 Glucose has since been stable Insulin autoantibody pending Abnormal EKG/CAD Patient has been seen evaluated by Dr. Muro. He is status post heart cath with single-vessel disease and stent placed. Troponins elevated 2 Right middle lobe pneumonia per x-ray He is status post Rocephin and azithromycin for community-acquired pneumonia. He was switched to p.o. Ceftin and Zithromax. Hypertension BP meds were initially on hold to allow for permissive hypertension, will resume these Hypokalemia Replaced, now stable Tobacco abuse counseled Alcohol abuse counseled DVT pro bilateral SCDs Discharge Planning Discharge planning neuro clearance. Case management to assist with discharge needs. Problem Qualifiers (1) Pneumonia: Qualified Codes: J18.1 - Lobar pneumonia, unspecified organism Anitha Thurston MD Mar 29, 2018 08:34
[2018-03-29] MEDS: ASPIRIN EC 81 MG TABEC PO SCH (08:58)
[2018-03-29] MEDS: AZITHROMYCIN 250 MG TAB PO SCH (08:59)
[2018-03-29] MEDS: CLOPIDOGREL 75 MG TAB PO SCH (08:59)
[2018-03-29] MEDS: CEFUROXIME AXETIL 500 MG TAB PO SCH ×2 (09:00→21:01)
[2018-03-29] MEDS: guaiFENesin E.R. 600 MG TAB PO SCH ×2 (09:02→21:00)
[2018-03-29] MEDS ORDERED: ASA325 PO (12:04)
[2018-03-29] MEDS ORDERED: AZIT250T3 PO (12:04)
[2018-03-29] MEDS ORDERED: LISI-519 PO (12:04)
[2018-03-29] MEDS ORDERED: PLAV75TA29 PO (12:04)
--- NOTE | 2018-03-29 12:04 | HHI.DCPOC ---
Discharge Care Plan Diagnosis: (1) Pneumonia (2) Tobacco abuse (3) CAD (coronary artery disease) Goals to Promote Your Health * To prevent worsening of your condition and complications * To maintain your health at the optimal level Directions to Meet Your Goals Take your medications as prescribed Follow your dietary instruction Follow activity as directed Keep your appointments as scheduled Take your immunizations and boosters as scheduled If your symptoms worsen call your PCP, if no PCP go to Urgent Care Center or Emergency Room Smoking is Dangerous to Your Health. Avoid second hand smoke Call the 24-hour hour crisis hotline for domestic abuse at Anitha Thurston MD Mar 29, 2018 12:04
[2018-03-29] MEDS: SODIUM CHLORIDE 0.9% FLUSH 10 ML FLUSH IV FLUSH SCH ×2 (13:37→21:01)
--- NOTE | 2018-03-29 14:42 | HHI.DS ---
Discharge Summary Admission Date Mar 24, 2018 at 22:38 Discharge Date: Mar 29, 2018 Admitting Diagnosis pneumonia, acs [facility] Dr. Muro cardiology Dr. Morataya neuro CBC/BMP: 03/28/18 1321 03/28/18 0328 Significant Findings Laboratory Tests Test 03/27/18 05:39 03/27/18 07:13 03/28/18 03:28 03/28/18 13:21 Red Blood Count 3.48 MIL/MM3 (4.50-5.90) 3.38 MIL/MM3 (4.50-5.90) 3.35 MIL/MM3 (4.50-5.90) Hemoglobin 11.8 GM/DL (13.0-17.0) 11.7 GM/DL (13.0-17.0) 11.7 GM/DL (13.0-17.0) Hematocrit 35.3 % (39.0-51.0) 34.5 % (39.0-51.0) 33.5 % (39.0-51.0) Mean Corpuscular Volume 101.2 FL (80.0-100.0) 101.9 FL (80.0-100.0) Monocytes (%) (Auto) 9.7 % (0.0-8.0) 9.0 % (0.0-8.0) 10.7 % (0.0-8.0) Blood Urea Nitrogen 3 MG/DL (7-18) 3 MG/DL (7-18) Calcium Level 8.1 MG/DL (8.5-10.1) 7.6 MG/DL (8.5-10.1) Potassium Level 3.1 MEQ/L (3.5-5.1) 3.1 MEQ/L (3.5-5.1) Chloride Level 108 MEQ/L (98-107) Insulin Level 1.0 uIU/mL (2.0-19.6) Mean Corpuscular Hemoglobin 34.7 PG (27.0-34.0) 34.9 PG (27.0-34.0) HDL Cholesterol 80.9 MG/DL (40.0-60.0) Bedside Hemoglobin 10.9 G/DL (13.0-17.0) Bedside Hematocrit 32.0 % (39.0-51.0) Prothrombin Time 9.4 SEC (9.8-11.6) Activated Partial Thromboplast Time 24.2 SEC (24.3-30.1) Bedside Sodium 132 MMOL/L (137-144) Bedside Chloride 100 MMOL/L (102-111) Bedside Blood Urea Nitrogen LESS THAN 3 MG/DL (5-21) Troponin I 1.53 NG/ML (0.02-0.05) Test 03/28/18 14:42 Troponin I 1.59 NG/ML (0.02-0.05) Hospital Course This is a 68-year-old male patient who was initially brought to the ED for hypoglycemia. Patient was noted to have a blood sugar of 24 and without significant medical problems. EKG on admission was significant for T-wave inversions. The patient underwent a diagnostic heart cath subsequently which showed single-vessel disease, bare-metal stent was placed. He was started on Plavix. On March 28 a stroke alert was called due to acute change in patient's mental status including confusion. A CT and MRI was performed which was negative for any event. He was seen and evaluated by neurology. Patient was also treated for pneumonia in the hospital. Assistance was provided with patient to get his medications upon discharge as he is currently without coverage and does not have a PCP. 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
--- NOTE | 2018-03-29 18:43 | HHI.PR ---
Review/Management Diagnosis transient global amnesia Plan ok form neurologic standpoint to dc home when ok with medicine service. Diagnosis/Plan: Subjective Subjective Comments No acute events reported He feels his memory and orientation is normal Active Medications Current Medications Medications (Trade) Dose Ordered Sig/Natty Route Start Time Stop Time Status Last Admin (Tylenol) 650 mg Q4H PRN PO 03/24/18 22:45 (Narcan Inj) 0.4 mg UNSCH PRN IV PUSH 03/24/18 22:45 (Milk Of Magnesia Liq) 30 ml Q12H PRN PO 03/24/18 22:45 (Senokot) 17.2 mg Q12H PRN PO 03/24/18 22:45 (Dulcolax Supp) 10 mg DAILY PRN RECTAL 03/24/18 22:45 (Lactulose Liq) 30 ml DAILY PRN PO 03/24/18 22:45 (Mucinex Er) 600 mg BID PO 03/24/18 22:45 03/28/18 20:40 (Duoneb Neb) 1 ampule Q2HR NEB PRN NEB 03/24/18 22:45 (Ecotrin Ec) 162 mg DAILY PO 03/25/18 12:00 03/29/18 08:58 (Lopressor) 12.5 mg Q12HR PO 03/25/18 21:00 Future Hold 03/28/18 08:55 (Catapres) 0.1 mg Q6H PRN PO 03/25/18 17:15 03/28/18 14:33 (Pill Splitter) 1 ea UNSCH PRN OTHER 03/25/18 17:15 (Prinivil) 5 mg DAILY PO 03/26/18 09:00 Future Hold 03/28/18 09:05 (Zithromax) 500 mg DAILY PO 03/26/18 09:00 03/29/18 08:59 (Ceftin) 500 mg Q12HR PO 03/26/18 09:00 03/29/18 09:00 (Nitroglycerin 2% Oint) 0.5 inch Q6HR TOPICAL 03/26/18 13:00 03/29/18 18:20 (Aspirin) 325 mg [place] NET PO 03/26/18 13:00 03/30/18 12:59 (Benadryl) 50 mg [place] NET PO 4/25/18 13:00 03/30/18 12:59 (Valium) 5 mg [place] NET PO 03/26/18 13:00 03/30/18 12:59 (Tylenol) 325 mg Q4H PRN PO 03/27/18 10:15 (Percocet 5-325 Mg) 1 tab Q4H PRN PO 03/27/18 10:15 (Percocet 10-325 Mg) 1 tab Q4H PRN PO 03/27/18 10:15 (Morphine Inj) 2 mg Q30M PRN IV PUSH 03/27/18 10:15 (Plavix) 75 mg DAILY PO 03/28/18 09:00 03/29/18 08:59 (Zofran Inj) 4 mg Q4H PRN IV PUSH 03/27/18 10:15 Sodium Chloride 1,000 ml @ 70 mls/hr [id number] IV 03/28/18 14:01 03/28/18 14:35 (Vasotec Inj) 1.25 mg Q4H PRN IV PUSH 03/28/18 14:15 (NS Flush) 2 ml BID IV FLUSH 03/28/18 21:00 03/29/18 13:37 (NS Flush) 2 ml UNSCH PRN IV FLUSH 03/28/18 14:45 (NovoLOG SUPPLEMENTAL SCALE) 1 ACHS SQ 03/28/18 17:00 (D50w (Vial) Inj) 50 ml UNSCH PRN IV PUSH 03/28/18 14:45 (Glucagon Inj) 1 mg UNSCH PRN OTHER 03/28/18 14:45 Allergies Allergies Coded Allergies bee venom protein (honey bee) (Verified Allergy, Severe, Anaphylaxis, 03/24/18) Exam I&O / VS 03/29/18 03/29/18 03/30/18 15:00 23:00 07:00 Intake Total 720 ml Output Total 1250 ml Balance -530 ml Intake Oral 720 ml Output Urine Total 1250 ml # Bowel Movements 1 Vital Signs Date Time Temp Pulse Resp B/P (MAP) Pulse Ox O2 Delivery O2 Flow Rate FiO2 03/29/18 18:00 86 03/29/18 17:33 99 21 03/29/18 17:00 80 03/29/18 16:00 78 03/29/18 15:48 98.5 80 18 145/80 (101) 100 03/29/18 15:48 100 Room Air 03/29/18 15:00 82 03/29/18 14:00 86 03/29/18 13:00 88 03/29/18 12:16 98.0 79 19 144/82 (102) 100 03/29/18 12:00 80 03/29/18 11:40 98 03/29/18 11:00 83 03/29/18 10:00 80 03/29/18 09:00 82 03/29/18 08:00 68 03/29/18 07:57 99 Room Air 03/29/18 07:57 97.9 91 18 124/72 (89) 99 03/29/18 07:36 72 03/29/18 06:00 91 03/29/18 05:00 89 03/29/18 04:00 Room Air 03/29/18 04:00 98.4 96 20 123/72 (89) 97 03/29/18 04:00 96 03/29/18 03:00 92 03/29/18 02:00 90 03/29/18 01:00 87 03/29/18 00:00 84 03/29/18 00:00 98.2 84 20 136/74 (94) 97 03/29/18 00:00 Room Air 03/28/18 23:00 89 03/28/18 22:00 91 03/28/18 21:00 72 03/28/18 20:00 91 03/28/18 20:00 98.6 91 22 130/69 (89) 98 Exam Comments alert, oriented times 3, speech is normal and comprehension normal CN intact MOTOR 5/5 bilaterally Objective Radiology Results MRI brain normal with no sign of cva Micro and Labs Laboratory Tests Test 03/29/18 16:07 Troponin I 0.87 Conor Morataya MD PhD Mar 29, 2018 18:43
[2018-03-30] VITALS (8 sets, daily range): BP systolic 121–155; BP diastolic 69–87; PULSE 69–87; RESP 18–20; TEMP 98–98.4; O2SAT 96–100
--- NOTE | 2018-03-30 07:29 | HHI.PR ---
Subjective Remarks Patient seen and examined this am, vitals are stable and patient is afebrile. Patient feels well today. Fully dressed sitting in bed waiting to go home. He denies chest pain or difficulty breathing. Plans to go home with daughter. Objective Vital Signs Date Time Temp Pulse Resp B/P (MAP) Pulse Ox O2 Delivery O2 Flow Rate FiO2 03/30/18 07:26 100 Room Air 03/30/18 07:00 69 03/30/18 04:00 Room Air 03/30/18 04:00 74 03/30/18 04:00 98.4 74 18 130/69 (89) 96 03/30/18 03:00 79 03/30/18 02:00 83 03/30/18 01:00 85 03/30/18 00:00 98.3 81 20 155/87 (109) 98 03/30/18 00:00 81 03/29/18 23:00 86 03/29/18 22:00 90 03/29/18 21:00 94 03/29/18 20:00 98.1 89 20 129/71 (90) 97 03/29/18 20:00 89 03/29/18 20:00 Room Air 03/29/18 18:00 86 03/29/18 17:33 99 21 03/29/18 17:00 80 03/29/18 16:00 78 03/29/18 15:48 98.5 80 18 145/80 (101) 100 03/29/18 15:48 100 Room Air 03/29/18 15:00 82 03/29/18 14:00 86 03/29/18 13:00 88 03/29/18 12:16 98.0 79 19 144/82 (102) 100 03/29/18 12:00 80 03/29/18 11:40 98 03/29/18 11:00 83 03/29/18 10:00 80 03/29/18 09:00 82 03/29/18 08:00 68 03/29/18 07:57 99 Room Air 03/29/18 07:57 97.9 91 18 124/72 (89) 99 03/29/18 07:36 72 I/O 4/28/18 4/28/18 4/28/18 4/29/18 4/29/18 4/29/18 07:00 15:00 23:00 07:00 15:00 23:00 Intake Total 1500 ml 720 ml 480 ml Output Total 950 ml 1250 ml 700 ml Balance 550 ml -530 ml -220 ml Intake Oral 800 ml 720 ml 480 ml IV Total 700 ml Output Urine Total 950 ml 1250 ml 700 ml # Bowel Movements 0 1 0 Result Diagram: 03/28/18 1321 03/28/18 0328 Imaging Last Impressions Neck CTA 03/28/18 0000 Signed Impressions: Service Date/Time: Wednesday, March 28, 2018 13:38 - CONCLUSION: 1. No evidence of hemodynamically significant lesion. No occlusion is seen. Vinayak Cruz MD Head Magnetic Resonance Angiography 03/28/18 0000 Signed Impressions: Service Date/Time: Wednesday, March 28, 2018 18:04 - CONCLUSION: Normal brain MRA. Ben Goldsmith MD Head CTA 03/28/18 0000 Signed Impressions: Service Date/Time: Wednesday, March 28, 2018 13:38 - CONCLUSION: 1. Unremarkable CT angiography of the brain. Vinayak Cruz MD Head CT 03/28/18 0000 Signed Impressions: Service Date/Time: Wednesday, March 28, 2018 13:30 - CONCLUSION: 1. No acute infarct, acute hemorrhage, midline shift or acute extra-axial bleed. 2. Diffuse cerebral atrophy. 3. Possible tiny subacute right frontal subdural hematoma measuring 4 mm in width which results in no mass effect upon the adjacent frontal lobe and is unchanged from previous admission. Servando Madrigal MD Brain MRI 03/28/18 0000 Signed Impressions: Service Date/Time: Wednesday, March 28, 2018 18:04 - CONCLUSION: 1. No acute infarct or other acute intracranial abnormality. 2. Mild chronic white matter changes. Ben Goldsmith MD Myocardial Perfusion Scan Nuc Med 03/26/18 0600 Signed Impressions: Service Date/Time: Monday, March 26, 2018 10:49 - CONCLUSION: 1. Small moderately severe reversible defect involving the anterior lateral wall characteristic of ischemia. 2. Normal wall motion is mildly decreased calculated ejection fraction. RISK CATEGORY: Intermediate (1-3%% Annual Mortality Rate) Dillon Martin MD Chest X-Ray 03/24/18 0000 Signed Impressions: Service Date/Time: Saturday, March 24, 2018 20:17 - CONCLUSION: Early or mild pneumonia of the right middle lobe possible in the proper clinical setting. Lungs otherwise clear. Emphysema. Ben Goldsmith MD Objective Remarks GENERAL: Well-appearing, no acute distress SKIN: Warm and dry. HEAD: Normocephalic. EYES: No scleral icterus. No injection or drainage. NECK: Supple, trachea midline. No JVD or lymphadenopathy. CARDIOVASCULAR: Regular rate and rhythm without murmurs, gallops, or rubs. RESPIRATORY: Breath sounds equal bilaterally. No accessory muscle use. GASTROINTESTINAL: Abdomen soft, non-tender, nondistended. MUSCULOSKELETAL: No cyanosis, or edema. A/P Problem List: (1) CAD (coronary artery disease) ICD Code: I25.10 - Atherosclerotic heart disease of [place] coronary artery without angina pectoris (2) Hypoglycemia ICD Code: E16.2 - Hypoglycemia, unspecified (3) Tobacco abuse ICD Code: Z72.0 - Tobacco use (4) Stented coronary artery ICD Code: Z95.5 - Presence of coronary angioplasty implant and graft (5) Alcohol abuse ICD Code: F10.10 - Alcohol abuse, uncomplicated (6) Pneumonia ICD Code: J18.9 - Pneumonia, unspecified organism Status: Acute Assessment and Plan This is a 68-year-old male patient who was initially brought to the ED for hypoglycemia. Patient was noted to have a blood sugar of 24 and without significant medical problems. EKG on admission was significant for T-wave inversions. He was admitted for observation. Subsequently on March 28 a stroke alert was called due to patient unable to talk and was unable to recognize family members in the room. Transient global amnesia Seen and evaluated by Dr. Morataya. Doubt stroke or transient ischemic attack. Mental status improving. There is questionable subdural hematoma which appears to be subacute versus artifact. He suggested that we continue Plavix and aspirin. MRI ordered to further identify a subdural hematoma is present or not. MRI negative for any acute intracranial abnormality. Echo on March 25 reveals normal systolic function, mild mitral valve regurg, mild tricuspid regurg Hypoglycemia Hemoglobin A1c 5.4 Glucose has since been stable Insulin autoantibody pending Abnormal EKG/CAD Patient has been seen evaluated by Dr. Muro. He is status post heart cath with single-vessel disease and stent placed. Troponins elevated 2 Right middle lobe pneumonia per x-ray He is status post Rocephin and azithromycin for community-acquired pneumonia. He was switched to p.o. Ceftin and Zithromax. Hypertension BP stable-- cont metoprolol and lisinopril Hypokalemia Replaced, now stable Tobacco abuse counseled Alcohol abuse counseled DVT pro bilateral SCDs Discharge Planning Discharged on 03/29 Problem Qualifiers (1) Pneumonia: Qualified Codes: J18.1 - Lobar pneumonia, unspecified organism Anitha Thurston MD Mar 30, 2018 07:29
[2018-03-30] MEDS: INSULIN ASPART SUPPLEMENTAL SCALE SQ SCH (07:35)
[2018-03-30] MEDS: CEFUROXIME AXETIL 500 MG TAB PO SCH (08:36)
[2018-03-30] MEDS: AZITHROMYCIN 250 MG TAB PO SCH (08:36)
[2018-03-30] MEDS: CLOPIDOGREL 75 MG TAB PO SCH (08:36)
[2018-03-30] MEDS: ASPIRIN EC 81 MG TABEC PO SCH (08:36)
[2018-03-30] MEDS: guaiFENesin E.R. 600 MG TAB PO SCH (08:37)
[2018-03-30] MEDS: METOPROLOL TARTRATE 25 MG TAB PO SCH (08:44)
[2018-03-30] MEDS: LISINOPRIL 5 MG TAB PO SCH (08:44)
[2018-04-01 23:52] LABS: INSULIN AUTO ANTIBODIES LESS THAN 0.4 U/mL (<0.4)
--- NOTE | 2018-04-03 11:08 | HHI.PR ---
Subjective Remarks Late entry - patient seen on 03/27/18 Objective Objective Remarks AAOx3 NAD Clear lungs Bl S1S2 + , RRR, no MRG no edema or JVD no hematoma observed on right groin Procedures ECHOCARDIOGRAM CONCLUSIONS The left ventricular systolic function is grossly normal on limited imaging. [id number] mitral valve regurgitation. There is trace tricuspid valve regurgitation. There is a small pericardial effusion present. This effusion is mostly on the anterior side without any evidence of tamponade. A/P Problem List: (1) ECG abnormality ICD Code: R94.31 - Abnormal electrocardiogram [ECG] [EKG] Status: Acute (2) Pneumonia ICD Code: J18.9 - Pneumonia, unspecified organism Status: Acute (3) Hyperglycemia ICD Code: R73.9 - Hyperglycemia, unspecified Assessment and Plan Hypoglycemia/Genralized weakness -Possible underlying diabetes, patient presented to the emergency department he had blood sugar of 431, after given D10 -Accu-Cheks during hospitalization ranged from 94-143 -Hemoglobin A1c 5.2 - Diabetes ruled out. -Check insulin level, C-peptide, beta hydroxybutyrate, proinsulin, insulin antibody, cortisol level. -Accu-Cheks with sliding scale insulin, has not required any insulin -Counseled patient on glucose control, alcohol use 03/27 NO further hypoglycemia. Diabetes ruled out. Continue Accuchecks and SSI. CAD/Unstable Angina/Abnormal EKG Small pericardial effusion without tamponade -Patient is asymptomatic -EKG showing abnormal T waves in almost every lead showing possible signs of anterior lateral ischemia -Serial cardiac enzymes are unremarkable and do not show any signs of cardiac injury -Consult cardiology for further recommendations, who recommended myocardial perfusion study, echocardiogram -Echocardiogram: See results above -Continue aspirin -Continue Lopressor 12.5 mg twice daily -Start Nitropaste 1/2 inch every 6 hours -Lipid panel indicates LDL 39 -Myocardial perfusion study does indicate small moderately severe reversible defect involving the anterior lateral wall characteristic of ischemia -Discussed with cardiology who indicates that the patient will likely require cardiac catheterization, will transfer to the main hospital 03/27 Patient is sp cardiac catheterization which showed: 1. Normal hemodynamics. 2. Normal left ventricular function. 3. Critical single vessel disease, now status post stenting with a 22 mm long, 3.5 mm diameter bare metal stent. Continue ASA and Plavix. Cards recommends Plavix for a least one year. Community-acquired pneumonia Chest x-ray showed mild pneumonia of the right middle lobe. -Patient started on Rocephin/Zithromax for community-acquired pneumonia, IV antibiotics discontinued and the patient was on oral antibiotics. -Continue guaifenesin -Continue duo nebs as needed Hypertension -Continue Lopressor 12.5 mg twice daily -Continue Lisinopril. 03/27 had one episode of elevated BP inthe 180's systolic. Continue current antihypertensive medications. Hypokalemia -Replace and continue monitor. Chronic tobacco use -Patient counseled on cessation Chronic alcohol use -Monitor for withdrawal symptoms No signs of etoh withdrawal DVT prevention -Sequential compression devices Problem Qualifiers (1) Pneumonia: Qualified Codes: J18.1 - Lobar pneumonia, unspecified organism Zoltan Souza MD April 03, 2018 11:08
== END 2018-03-30 09:56 | disposition home or self-care (01) ==
LOC: PHED 16:49 → PHEDA 22:38 → INTOOBSV 22:38 → PH3A 23:43 → HCIS 03-26 17:20
PROVIDERS: ADMIT Family Medicine; ATTEND Family Medicine
DX: E11.649 Type 2 diabetes mellitus with hypoglycemia without coma (principal); J44.0 Chronic obstructive pulmonary disease with (acute) lower respiratory infection; J18.1 Lobar pneumonia, unspecified organism; E87.6 Hypokalemia; E11.65 Type 2 diabetes mellitus with hyperglycemia; F10.10 Alcohol abuse, uncomplicated; G83.9 Paralytic syndrome, unspecified; I25.110 Atherosclerotic heart disease of native coronary artery with unstable angina pectoris; I08.1 Rheumatic disorders of both mitral and tricuspid valves; I10 Essential (primary) hypertension; I31.3 Pericardial effusion (noninflammatory); I45.81 Long QT syndrome; R00.0 Tachycardia, unspecified; R94.31 Abnormal electrocardiogram [ECG] [EKG]; G45.4 Transient global amnesia; R06.00 Dyspnea, unspecified; J32.0 Chronic maxillary sinusitis; F17.210 Nicotine dependence, cigarettes, uncomplicated; Z79.02 Long term (current) use of antithrombotics/antiplatelets; Z79.82 Long term (current) use of aspirin; Z79.899 Other long term (current) drug therapy
CPT/HCPCS: 70450; 70496; 70498; 70544; 70551; 71046; 78452; 80048; 80053; 80061; 82010; 82533; 82550; 82948; 83036; 83525; 83735; 84206; 84484; 84681; 85025; 85384; 85610; 85730; 86337; 86850; 86900; 86901; 92928; 93005; 93017; 93306; 93458; 94150; 94640; 94664; 96361; 96365; 96366; 96367; 96375; 97161; 97164; 99152; 99153; 99285; A9502; C1725; C1760; C1769; C1876; C1887; C1893; G0269; G0378; G8987; G8988; J0456; J0583; J0696; J1644; J2250; J2785; J3475; J7030; J7050; Q9967